=== PATIENT | female | born 1985 | race African-American/Black ===

== ENCOUNTER 2018-10-01 15:33 | Inpatient (IN) | payer MEDICAID ==
[~2018-10-01] VITALS: Ht 160 cm; Wt 136.9 kg
[~2018-10-01 15:33] MED LIST: CEPH250 PO; DULO30CA2 PO; DULO60CA44 PO; GABA-531 PO; GABA400C PO; QUET25TA PO; QUET300T2 PO; TRAZ-220 PO; Trazodone Hcl PO
[2018-10-01 16:10] LABS: BASOPHILS % (AUTO) 0.8 % (0.0-2.0); EOSINOPHILS % (AUTO) 2.3 % (1.0-6.0); HEMATOCRIT 36.3 % (36-46); HEMOGLOBIN 12.2 g/dL (12.0-16.0); LYMPHOCYTES # (AUTO) 1.8 K/uL (1.0-4.8); LYMPHOCYTES % (AUTO) 22.7 % (22.0-44.0); MEAN CORPUSCULAR HEMOGLOBIN 28.8 pg (26.0-34.0); MEAN CORPUSCULAR HGB CONC 33.7 G/dL (31.0-37.0); MEAN CORPUSCULAR VOLUME 86 fL (80-100); MONOCYTES # (AUTO) 0.5 K/uL (0.1-1.0); MONOCYTES % (AUTO) 6.4 % (2.0-9.0); NEUTROPHILS # (AUTO) 5.3 K/uL (1.8-7.7); NEUTROPHILS % (AUTO) 67.8 % (40.0-70.0); PLATELET COUNT (AUTO) 300 K/uL (150-450); RED BLOOD CELL COUNT(AUTO) 4.24 MIL/uL (4.00-5.20); RED CELL DISTRIBUTION WIDTH 16.1 % (11.5-14.5)
[2018-10-01 16:22] LABS: AMPHET/METH SCREEN,URINE NEGATIVE (NEGATIVE); BARBITURATE SCREEN, URINE NEGATIVE (NEGATIVE); BENZODIAZEPINES SCREEN,URINE NEGATIVE (NEGATIVE); CANNABINOID SCREEN,URINE NEGATIVE (NEGATIVE); COCAINE SCREEN,URINE NEGATIVE (NEGATIVE); METHADONE SCREEN, URINE NEGATIVE (NEGATIVE); OPIATE SCREEN,URINE NEGATIVE (NEGATIVE); PHENCYCLIDINE SCREEN,URINE NEGATIVE (NEGATIVE)
[2018-10-01 16:29] LABS: ANION GAP 14 mmol/L (8-16); CALCIUM, TOTAL 8.9 mg/dL (8.8-10.5); CARBON DIOXIDE 20 mmol/L (22-29); CHLORIDE 105 mmol/L (98-107); CREATININE 1.01 mg/dL (0.60-1.30); GLOMERULAR FILTR. RATE CALC > 60 mL/min (>60); GLUCOSE,RANDOM 100 mg/dL (70-110); POTASSIUM 3.8 mmol/L (3.5-5.1); SODIUM SERUM 139 mmol/L (136-145); UREA NITROGEN, BLOOD 11 mg/dL (7-18)
[2018-10-01 16:36] LABS: ALANINE AMINOTRANSFERASE 34 U/L (12-78); ALBUMIN 3.7 g/dL (3.4-5.0); ALKALINE PHOSPHATASE 88 U/L (46-116); ASPARTATE AMINOTRANSFERASE 21 U/L (15-37); BILIRUBIN,TOTAL 0.2 mg/dL (0.1-1.0); HCG,QUANTITATIVE < 1 mIU/mL (0-6); TOTAL PROTEIN, SERUM 8.2 g/dL (6.4-8.2)
[2018-10-01] MEDS ORDERED: LORazepam 2 MG TABLET PO ONE (17:45)
[2018-10-01] MEDS ORDERED: ACETAMINOPHEN 500 MG TABLET PO ONE (17:45)
[2018-10-01 18:08] LABS: APPEARANCE,URINE CLEAR (CLEAR); BILIRUBIN,URINE NEGATIVE (NEGATIVE); GLUCOSE, URINE (UA) NEGATIVE (NEGATIVE); KETONES,URINE NEGATIVE (NEGATIVE); LEUKOCYTE ESTERASE ,URINE NEGATIVE (NEGATIVE); NITRATE,URINE NEGATIVE (NEGATIVE); OCCULT BLOOD,URINE NEGATIVE (NEGATIVE); PH,URINE 6.5 (5.0-8.0); PROTEIN,URINE NEGATIVE (NEGATIVE); UROBILINOGEN,URINE 0.2 mg/dL (<=1.0)
[2018-10-01] MEDS ORDERED: KETOROLAC TROMETHAMINE 60 MG/2 ML VIAL IM ONE (18:30)
[2018-10-01 19:40] VITALS: BP 139/94
[2018-10-01] MEDS ORDERED: CloNIDine HCL 0.1 MG TABLET PO PRN (21:15)
[2018-10-01] MEDS ORDERED: ACETAMINOPHEN 325 MG TABLET PO PRN (21:15)
[2018-10-01] MEDS ORDERED: ALBUTEROL SULFATE HFA 90 MCG/PUFF 8 GM INHALER IH PRN (21:15)
[2018-10-01] MEDS ORDERED: PETROLATUM,WHITE 71 GM JELLY TP PRN (21:15)
[2018-10-01] MEDS ORDERED: GuaiFENesin/D-METHORPHAN [SUGAR-FREE] 200-20MG/10 ML SYRUP UDCUP PO PRN (21:15)
[2018-10-01] MEDS ORDERED: MAGNESIUM HYDROXIDE SUSPENSION 30 ML UDCUP PO PRN (21:15)
[2018-10-01] MEDS ORDERED: LOPERAMIDE HCL 2 MG CAPSULE PO PRN (21:15)
[2018-10-01] MEDS ORDERED: MAG HYDROX/AL HYDROX/SIMETH ES 30 ML SUSPENSION UDCUP PO PRN (21:15)
[2018-10-01] MEDS ORDERED: DOCUSATE SODIUM 100 MG CAPSULE PO PRN (21:15)
[2018-10-01] MEDS: LORazepam 2 MG TABLET PO PRN (21:23)
[2018-10-02 07:45] LABS: FREE T4 (FREE THYROXINE) 0.67 ng/dL (0.76-1.46); THYROID STIMULATING HORMONE 2.91 uIU/mL (0.36-3.74)
[2018-10-02 11:22] VITALS: BP 128/76
[2018-10-02] MEDS: LORazepam 2 MG TABLET PO PRN ×2 (13:17→17:30)
[2018-10-02] MEDS ORDERED: OxyCODONE HCL/ACETAMINOPHEN 5-325 MG TABLET PO ONE (14:00)
[2018-10-02] MEDS: NICOTINE 14 MG/24 HOUR PATCH TD PRN (14:26)
[2018-10-02] MEDS: OLANZapine 10 MG TABLET PO SCH (17:13)
[2018-10-02] MEDS: GABAPENTIN 300 MG CAPSULE PO SCH (17:13)
[2018-10-02 18:17] VITALS: BP 117/92
[2018-10-02] MEDS: QUEtiapine FUMARATE 300 MG TABLET PO SCH (21:08)
[2018-10-03 08:30] VITALS: BP 134/78
[2018-10-03] MEDS: GABAPENTIN 300 MG CAPSULE PO SCH ×2 (08:46→16:29)
[2018-10-03] MEDS: OLANZapine 10 MG TABLET PO SCH ×2 (08:46→16:29)
[2018-10-03] MEDS: LORazepam 2 MG TABLET PO PRN ×2 (08:46→14:26)
[2018-10-03] MEDS: NICOTINE 14 MG/24 HOUR PATCH TD PRN (08:49)
[2018-10-03] MEDS: ONDANSETRON HCL 4 MG TABLET PO PRN (12:24)
[2018-10-03] MEDS: HALOPERIDOL 5 MG TABLET PO PRN (14:26)
[2018-10-03] MEDS: DiphenhydrAMINE HCL 25 MG CAPSULE PO PRN (14:26)
[2018-10-03] MEDS ORDERED: OxyCODONE HCL/ACETAMINOPHEN 5-325 MG TABLET PO ONE (14:30)
[2018-10-03 16:49] VITALS: BP 145/91
[2018-10-03] MEDS: NYSTATIN 15 GM POWDER BOTTLE TP SCH (17:15)
[2018-10-03] MEDS: QUEtiapine FUMARATE 300 MG TABLET PO SCH (21:18)
[2018-10-04 09:25] VITALS: BP 117/67
[2018-10-04] MEDS: LORazepam 2 MG TABLET PO PRN ×2 (11:17→17:15)
[2018-10-04] MEDS: OLANZapine 10 MG TABLET PO SCH ×2 (11:17→17:14)
[2018-10-04] MEDS: GABAPENTIN 300 MG CAPSULE PO SCH ×2 (11:17→17:14)
[2018-10-04] MEDS: IBUPROFEN 400 MG TABLET PO PRN (11:18)
[2018-10-04] MEDS: DiphenhydrAMINE HCL 25 MG CAPSULE PO PRN (11:18)
[2018-10-04] MEDS: HALOPERIDOL 5 MG TABLET PO PRN (11:19)
[2018-10-04] MEDS: NYSTATIN 15 GM POWDER BOTTLE TP SCH ×2 (11:24→17:14)
[2018-10-04 17:45] VITALS: BP 149/95
[2018-10-04] MEDS ORDERED: OxyCODONE HCL/ACETAMINOPHEN 5-325 MG TABLET PO ONE (17:45)
[2018-10-04] MEDS: QUEtiapine FUMARATE 300 MG TABLET PO SCH (20:33)
[2018-10-05 09:47] VITALS: BP 125/83
[2018-10-05] MEDS: LORazepam 2 MG TABLET PO PRN ×3 (09:47→20:19)
[2018-10-05] MEDS: DiphenhydrAMINE HCL 25 MG CAPSULE PO PRN ×2 (09:47→20:20)
[2018-10-05] MEDS: HALOPERIDOL 5 MG TABLET PO PRN ×2 (09:47→20:19)
[2018-10-05] MEDS: GABAPENTIN 300 MG CAPSULE PO SCH ×2 (09:47→16:13)
[2018-10-05] MEDS: OLANZapine 10 MG TABLET PO SCH ×2 (09:47→16:13)
[2018-10-05] MEDS: NYSTATIN 15 GM POWDER BOTTLE TP SCH ×2 (09:49→16:13)
[2018-10-05 16:13] VITALS: BP 144/93
[2018-10-05] MEDS: IBUPROFEN 400 MG TABLET PO PRN (16:13)
[2018-10-05 18:23] LABS: APPEARANCE,URINE CLOUDY (CLEAR); BILIRUBIN,URINE NEGATIVE (NEGATIVE); GLUCOSE, URINE (UA) NEGATIVE (NEGATIVE); KETONES,URINE NEGATIVE (NEGATIVE); LEUKOCYTE ESTERASE ,URINE NEGATIVE (NEGATIVE); NITRATE,URINE NEGATIVE (NEGATIVE); OCCULT BLOOD,URINE NEGATIVE (NEGATIVE); PH,URINE 5.5 (5.0-8.0); PROTEIN,URINE NEGATIVE (NEGATIVE); UROBILINOGEN,URINE 0.2 mg/dL (<=1.0)
[2018-10-05 18:32] LABS: BACTERIA,URINE Rare /HPF (None Seen); RBC,URINE None Seen /HPF (0-2); SQUAMOUS EPITHELIAL CELL,UR Few /LPF (None Seen); WBC,URINE None Seen /HPF (0-5)
[2018-10-05] MEDS: QUEtiapine FUMARATE 300 MG TABLET PO SCH (20:11)
[2018-10-05] MEDS: ZOLPIDEM TARTRATE 10 MG TABLET PO PRN (21:14)
[2018-10-06 05:30] VITALS: BP 122/98
[2018-10-06] MEDS: LORazepam 2 MG TABLET PO PRN ×3 (05:43→16:14)
[2018-10-06] MEDS: TraMADol HCL 50 MG TABLET PO PRN ×2 (05:44→13:45)
[2018-10-06] MEDS: DiphenhydrAMINE HCL 25 MG CAPSULE PO PRN ×2 (05:44→16:40)
[2018-10-06] MEDS: NYSTATIN 15 GM POWDER BOTTLE TP SCH ×2 (08:12→16:12)
[2018-10-06] MEDS: OLANZapine 10 MG TABLET PO SCH ×2 (08:12→16:14)
[2018-10-06] MEDS: GABAPENTIN 300 MG CAPSULE PO SCH ×2 (08:14→16:14)
[2018-10-06 11:43] VITALS: BP 171/97
[2018-10-06 13:30] VITALS: BP 141/89
[2018-10-06] MEDS: HALOPERIDOL 5 MG TABLET PO PRN (16:40)
[2018-10-06 19:10] VITALS: BP 146/93
[2018-10-06] MEDS: OxyCODONE HCL/ACETAMINOPHEN 5-325 MG TABLET PO PRN (19:10)
[2018-10-06] MEDS: QUEtiapine FUMARATE 300 MG TABLET PO SCH (20:09)
[2018-10-06] MEDS: ZOLPIDEM TARTRATE 10 MG TABLET PO PRN (21:20)
[2018-10-07] MEDS: LORazepam 2 MG TABLET PO PRN ×3 (01:40→17:46)
[2018-10-07 01:44] VITALS: BP 105/86
[2018-10-07] MEDS: OLANZapine 10 MG TABLET PO SCH ×2 (09:23→17:20)
[2018-10-07] MEDS: GABAPENTIN 300 MG CAPSULE PO SCH ×2 (09:23→17:20)
[2018-10-07] MEDS: NYSTATIN 15 GM POWDER BOTTLE TP SCH ×2 (09:23→17:20)
[2018-10-07 11:05] VITALS: BP 135/79
[2018-10-07] MEDS: OxyCODONE HCL/ACETAMINOPHEN 5-325 MG TABLET PO PRN (11:05)
[2018-10-07] MEDS: HALOPERIDOL 5 MG TABLET PO PRN (11:05)
[2018-10-07] MEDS: DiphenhydrAMINE HCL 25 MG CAPSULE PO PRN (11:05)
[2018-10-07 17:19] VITALS: BP 133/80
[2018-10-07] MEDS: QUEtiapine FUMARATE 300 MG TABLET PO SCH (20:48)
[2018-10-08] MEDS: NYSTATIN 15 GM POWDER BOTTLE TP SCH ×2 (09:00→16:04)
[2018-10-08] MEDS: OLANZapine 10 MG TABLET PO SCH ×2 (09:30→16:00)
[2018-10-08] MEDS: GABAPENTIN 300 MG CAPSULE PO SCH ×2 (09:30→16:00)
[2018-10-08] MEDS: LORazepam 2 MG TABLET PO PRN ×2 (09:36→15:58)
[2018-10-08 09:37] VITALS: BP 134/98
[2018-10-08] MEDS: OxyCODONE HCL/ACETAMINOPHEN 5-325 MG TABLET PO PRN (09:37)
[2018-10-08 11:14] VITALS: BP 117/64
[2018-10-08] MEDS ORDERED: PALIPERIDONE PALMITATE 234 MG/1.5 ML SYRINGE IM ONE (11:15)
[2018-10-08 15:59] VITALS: BP 118/91
[2018-10-08] MEDS: TraMADol HCL 50 MG TABLET PO PRN (15:59)
[2018-10-08 16:59] VITALS: BP 139/96
[2018-10-08] MEDS: HALOPERIDOL 5 MG TABLET PO PRN (18:18)
[2018-10-08] MEDS: DiphenhydrAMINE HCL 25 MG CAPSULE PO PRN (18:19)
[2018-10-08] MEDS: QUEtiapine FUMARATE 300 MG TABLET PO SCH (20:42)
[2018-10-09] MEDS: LORazepam 2 MG TABLET PO PRN ×3 (04:24→19:07)
[2018-10-09 04:25] VITALS: BP 128/93
[2018-10-09] MEDS: TraMADol HCL 50 MG TABLET PO PRN (04:25)
[2018-10-09] MEDS: NYSTATIN 15 GM POWDER BOTTLE TP SCH ×2 (09:00→16:37)
[2018-10-09] MEDS: OLANZapine 10 MG TABLET PO SCH ×2 (09:52→16:31)
[2018-10-09] MEDS: GABAPENTIN 300 MG CAPSULE PO SCH ×2 (09:52→16:32)
[2018-10-09 10:47] VITALS: BP 136/79
[2018-10-09 10:51] VITALS: BP 136/79
[2018-10-09 12:20] VITALS: BP 131/78
[2018-10-09] MEDS: OxyCODONE HCL/ACETAMINOPHEN 5-325 MG TABLET PO PRN (12:20)
[2018-10-09 17:00] VITALS: BP 114/58
[2018-10-09] MEDS: QUEtiapine FUMARATE 300 MG TABLET PO SCH (20:16)
[2018-10-09] MEDS: ZOLPIDEM TARTRATE 10 MG TABLET PO PRN (21:26)
[2018-10-10] MEDS: OxyCODONE HCL/ACETAMINOPHEN 5-325 MG TABLET PO PRN (04:24)
[2018-10-10] MEDS: LORazepam 2 MG TABLET PO PRN ×3 (04:24→17:45)
[2018-10-10 08:11] VITALS: BP 133/83
[2018-10-10] MEDS: NYSTATIN 15 GM POWDER BOTTLE TP SCH (09:00)
[2018-10-10] MEDS: OLANZapine 10 MG TABLET PO SCH ×2 (09:13→16:09)
[2018-10-10] MEDS: GABAPENTIN 300 MG CAPSULE PO SCH ×2 (09:13→16:09)
[2018-10-10] MEDS: TraMADol HCL 50 MG TABLET PO PRN (14:43)
[2018-10-10] MEDS: ChlorproMAZINE HCL 50 MG TABLET PO PRN (16:16)
[2018-10-10 17:46] VITALS: BP 143/92
[2018-10-10] MEDS: IBUPROFEN 400 MG TABLET PO PRN (17:46)
[2018-10-10] MEDS: QUEtiapine FUMARATE 300 MG TABLET PO SCH (20:04)
[2018-10-11] MEDS: IBUPROFEN 400 MG TABLET PO PRN (01:36)
[2018-10-11] MEDS: ZOLPIDEM TARTRATE 10 MG TABLET PO PRN (01:36)
[2018-10-11 01:37] VITALS: BP 120/79
[2018-10-11 06:58] VITALS: BP 111/77
[2018-10-11] MEDS: OxyCODONE HCL/ACETAMINOPHEN 5-325 MG TABLET PO PRN (07:00)
[2018-10-11] MEDS: OLANZapine 10 MG TABLET PO SCH ×2 (10:10→16:41)
[2018-10-11] MEDS: GABAPENTIN 300 MG CAPSULE PO SCH ×2 (10:10→16:41)
[2018-10-11] MEDS: LORazepam 2 MG TABLET PO PRN ×2 (11:14→17:47)
[2018-10-11] MEDS: ONDANSETRON HCL 4 MG TABLET PO PRN (18:14)
[2018-10-11] MEDS ORDERED: ONDANSETRON HCL 4 MG/2 ML VIAL IM ONE (19:00)
[2018-10-11] MEDS: QUEtiapine FUMARATE 300 MG TABLET PO SCH (20:53)
[2018-10-11 21:22] VITALS: BP 121/75
[2018-10-12] MEDS ORDERED: PALIPERIDONE PALMITATE 156 MG/ML SYRINGE IM ONE (09:00)
[2018-10-12 09:13] VITALS: BP 135/77
[2018-10-12] MEDS: OLANZapine 10 MG TABLET PO SCH ×2 (09:47→17:09)
[2018-10-12] MEDS: GABAPENTIN 300 MG CAPSULE PO SCH ×2 (09:47→17:09)
[2018-10-12 10:14] VITALS: BP 148/74
[2018-10-12] MEDS: LORazepam 2 MG TABLET PO PRN ×2 (10:14→17:11)
[2018-10-12] MEDS: OxyCODONE HCL/ACETAMINOPHEN 5-325 MG TABLET PO PRN (10:14)
[2018-10-12 17:11] VITALS: BP 130/72
[2018-10-12] MEDS: TraMADol HCL 50 MG TABLET PO PRN (17:11)
[2018-10-12 18:11] VITALS: BP 124/74
[2018-10-12] MEDS: TiZANidine HCL 4 MG TABLET PO PRN (20:10)
[2018-10-12] MEDS: QUEtiapine FUMARATE 300 MG TABLET PO SCH (20:11)
[2018-10-12 21:03] VITALS: BP 115/60
[2018-10-13 00:35] VITALS: BP 129/107
[2018-10-13] MEDS: ZOLPIDEM TARTRATE 10 MG TABLET PO PRN ×2 (00:37→20:16)
[2018-10-13] MEDS: TraMADol HCL 50 MG TABLET PO PRN (00:37)
[2018-10-13] MEDS: LORazepam 2 MG TABLET PO PRN ×3 (02:02→16:19)
[2018-10-13 02:03] VITALS: BP 115/68
[2018-10-13 04:25] VITALS: BP 159/98
[2018-10-13] MEDS: IBUPROFEN 400 MG TABLET PO PRN (04:30)
[2018-10-13] MEDS: GABAPENTIN 300 MG CAPSULE PO SCH ×2 (07:59→16:17)
[2018-10-13] MEDS: OLANZapine 10 MG TABLET PO SCH ×2 (07:59→16:17)
[2018-10-13] MEDS: OxyCODONE HCL/ACETAMINOPHEN 5-325 MG TABLET PO PRN (08:00)
[2018-10-13] MEDS: TiZANidine HCL 4 MG TABLET PO PRN ×2 (08:01→20:18)
[2018-10-13 08:05] VITALS: BP 135/89
[2018-10-13] MEDS: ChlorproMAZINE HCL 50 MG TABLET PO PRN (14:13)
[2018-10-13 17:00] VITALS: BP 140/73
[2018-10-13] MEDS: QUEtiapine FUMARATE 300 MG TABLET PO SCH (20:15)
[2018-10-14] MEDS: LORazepam 2 MG TABLET PO PRN ×2 (01:03→14:41)
[2018-10-14 01:05] VITALS: BP 114/62
[2018-10-14] MEDS: DiphenhydrAMINE HCL 25 MG CAPSULE PO PRN (01:06)
[2018-10-14] MEDS: IBUPROFEN 400 MG TABLET PO PRN (01:06)
[2018-10-14] MEDS: TraMADol HCL 50 MG TABLET PO PRN ×2 (01:06→14:41)
[2018-10-14 07:52] VITALS: BP 139/86
[2018-10-14] MEDS: OxyCODONE HCL/ACETAMINOPHEN 5-325 MG TABLET PO PRN (07:52)
[2018-10-14] MEDS: GABAPENTIN 300 MG CAPSULE PO SCH ×2 (07:52→17:14)
[2018-10-14] MEDS: OLANZapine 10 MG TABLET PO SCH ×2 (07:52→17:14)
[2018-10-14] MEDS: QUEtiapine FUMARATE 300 MG TABLET PO SCH (21:20)
[2018-10-14 21:50] VITALS: BP 143/89
[2018-10-15 07:53] VITALS: BP 151/92
[2018-10-15] MEDS: GABAPENTIN 300 MG CAPSULE PO SCH (07:53)
[2018-10-15] MEDS: OLANZapine 10 MG TABLET PO SCH (07:53)
[2018-10-15] MEDS: OxyCODONE HCL/ACETAMINOPHEN 5-325 MG TABLET PO PRN (07:53)
[2018-10-15] MEDS: LORazepam 2 MG TABLET PO PRN (09:11)
[2018-10-15] MEDS ORDERED: QUET300T2 PO (10:36)
[2018-10-15] MEDS ORDERED: GABA-531 PO (10:37)
[2018-10-15] MEDS ORDERED: OLAN10TA3 PO (10:39)
[2018-10-15] MEDS: ChlorproMAZINE HCL 50 MG TABLET PO PRN (10:40)
== END 2018-10-15 14:00 | disposition home or self-care (01) | DRG 750 ==
LOC: EMS 15:35 → 3EI 19:06
PROVIDERS: ADMIT Psychiatry & Neurology Psychiatry; ATTEND Psychiatry & Neurology Psychiatry
DX: F25.0 Schizoaffective disorder, bipolar type (principal); R45.851 Suicidal ideations; F41.9 Anxiety disorder, unspecified; G89.29 Other chronic pain; J45.909 Unspecified asthma, uncomplicated; M54.9 Dorsalgia, unspecified; F15.90 Other stimulant use, unspecified, uncomplicated; Z76.5 Malingerer [conscious simulation]
CPT/HCPCS: 70486; 76700; 76856; 83036; 84439; 84443; G0480; J1885; J2405; Q0162

== ENCOUNTER 2020-02-26 11:48 | Inpatient (IN) | payer MEDICAID ==
[~2020-02-26] VITALS: Ht 160 cm; Wt 134.3 kg
[~2020-02-26 11:48] MED LIST changes: -CEPH250 PO; -DULO30CA2 PO; -DULO60CA44 PO; +GABA-1181 PO; -GABA-531 PO; -GABA400C PO; +OLAN10TA3 PO; -QUET25TA PO; -TRAZ-220 PO; -Trazodone Hcl PO
[2020-02-26] MEDS ORDERED: LORazepam 1 MG TABLET PO PRN (21:30)
[2020-02-26 22:40] VITALS: BP 137/89
[2020-02-26] MEDS: TraMADol HCL 50 MG TABLET PO PRN (23:03)
[2020-02-26] MEDS: LORazepam 1 MG TABLET PO PRN (23:04)
[2020-02-26] MEDS ORDERED: -PHARMACY VACCINE NOTE- MISC ONE (23:15)
[2020-02-27] MEDS ORDERED: LORazepam 1 MG TABLET PO SCH
[2020-02-27 05:37] VITALS: BP 130/82
[2020-02-27] MEDS: OXcarbazepine 300 MG TABLET PO SCH ×2 (08:23→16:27)
[2020-02-27] MEDS: FLUoxetine HCL 20 MG CAPSULE PO SCH (08:23)
[2020-02-27] MEDS: BusPIRone HCL 15 MG TABLET PO SCH (08:23)
[2020-02-27 08:24] LABS: BASOPHILS % (AUTO) 0.6 % (0.0-2.0); EOSINOPHILS % (AUTO) 3.8 % (1.0-6.0); HEMOGLOBIN 11.9 g/dL (12.0-16.0); LYMPHOCYTES # (AUTO) 2.5 K/uL (1.0-4.8); LYMPHOCYTES % (AUTO) 29.5 % (22.0-44.0); MEAN CORPUSCULAR HEMOGLOBIN 30.2 pg (26.0-34.0); MEAN CORPUSCULAR HGB CONC 34.1 G/dL (31.0-37.0); MEAN CORPUSCULAR VOLUME 89 fL (80-100); MONOCYTES # (AUTO) 0.5 K/uL (0.1-1.0); MONOCYTES % (AUTO) 6.2 % (2.0-9.0); NEUTROPHILS # (AUTO) 5.1 K/uL (1.8-7.7); NEUTROPHILS % (AUTO) 59.9 % (40.0-70.0); PLATELET COUNT (AUTO) 282 K/uL (150-450); RED BLOOD CELL COUNT(AUTO) 3.95 MIL/uL (4.00-5.20); RED CELL DISTRIBUTION WIDTH 14.6 % (11.5-14.5)
[2020-02-27 08:44] LABS: HEMOGLOBIN A1C 5.5 % (3.8-5.6)
[2020-02-27 08:47] VITALS: BP 112/88
[2020-02-27] MEDS ORDERED: BusPIRone HCL 15 MG TABLET PO SCH (09:00)
[2020-02-27 09:02] LABS: ALANINE AMINOTRANSFERASE 27 U/L (12-78); ALKALINE PHOSPHATASE 69 U/L (46-116); ANION GAP 9 mmol/L (8-16); ASPARTATE AMINOTRANSFERASE 18 U/L (15-37); BILIRUBIN,TOTAL 0.3 mg/dL (0.1-1.0); CALCIUM, TOTAL 8.5 mg/dL (8.8-10.5); CARBON DIOXIDE 24 mmol/L (22-29); CHLORIDE 105 mmol/L (98-107); CHOL/HDL RATIO 3.1 (3.9-5.7); CHOLESTEROL 138 mg/dL (131-200); CREATININE 0.85 mg/dL (0.60-1.30); FREE T4 (FREE THYROXINE) 0.88 ng/dL (0.76-1.46); GLOMERULAR FILTR. RATE CALC > 60 mL/min (>60); GLUCOSE,RANDOM 93 mg/dL (70-110); HCG,QUANTITATIVE < 1 mIU/mL (0-6); HDL CHOLESTEROL 44 mg/dL (40-60); LDL CHOL (CALC.) 66 mg/dL (0-130); POTASSIUM 3.6 mmol/L (3.5-5.1); SODIUM SERUM 138 mmol/L (136-145); THYROID STIMULATING HORMONE 3.64 uIU/mL (0.36-3.74); TOTAL PROTEIN, SERUM 6.7 g/dL (6.4-8.2); TRIGLYCERIDES 141 mg/dL (15-150); UREA NITROGEN, BLOOD 15 mg/dL (7-18)
[2020-02-27] MEDS: TraMADol HCL 50 MG TABLET PO PRN (09:12)
[2020-02-27] MEDS: LORazepam 1 MG TABLET PO PRN ×2 (09:37→17:18)
[2020-02-27] MEDS ORDERED: MAG HYDROX/AL HYDROX/SIMETH ES 30 ML SUSPENSION UDCUP PO PRN (10:45)
[2020-02-27] MEDS ORDERED: GuaiFENesin/D-METHORPHAN [SUGAR-FREE] 200-20MG/10 ML SYRUP UDCUP PO PRN (10:45)
[2020-02-27] MEDS ORDERED: LOPERAMIDE HCL 2 MG CAPSULE PO PRN (10:45)
[2020-02-27] MEDS ORDERED: NICOTINE 14 MG/24 HOUR PATCH TD PRN (10:45)
[2020-02-27] MEDS ORDERED: ACETAMINOPHEN 325 MG TABLET PO PRN (10:45)
[2020-02-27] MEDS ORDERED: DOCUSATE SODIUM 100 MG CAPSULE PO PRN (10:45)
[2020-02-27] MEDS ORDERED: PETROLATUM,WHITE 28 GM JELLY TP PRN (10:45)
[2020-02-27] MEDS ORDERED: ALBUTEROL SULFATE HFA 90 MCG/PUFF 8 GM INHALER IH PRN (10:45)
[2020-02-27] MEDS ORDERED: CloNIDine HCL 0.1 MG TABLET PO PRN (10:45)
[2020-02-27] MEDS ORDERED: MAGNESIUM HYDROXIDE SUSPENSION 30 ML UDCUP PO PRN (10:45)
[2020-02-27] MEDS ORDERED: ONDANSETRON HCL 4 MG TABLET PO PRN (10:45)
[2020-02-27] MEDS: IBUPROFEN 400 MG TABLET PO PRN (11:20)
[2020-02-27] MEDS: OxyCODONE HCL/ACETAMINOPHEN 5-325 MG TABLET PO PRN (16:28)
[2020-02-27 16:33] VITALS: BP 134/83
[2020-02-27] MEDS: PRAZOSIN HCL 2 MG CAPSULE PO SCH (20:31)
[2020-02-27] MEDS: OLANZapine 10 MG TABLET PO SCH (20:31)
[2020-02-27] MEDS: QUEtiapine FUMARATE 200 MG TABLET PO SCH (20:31)
[2020-02-27] MEDS: TraZODone HCL 100 MG TABLET PO SCH (20:58)
[2020-02-27] MEDS ORDERED: OLANZapine 10 MG TABLET PO SCH (21:00)
[2020-02-27 23:58] LABS: GLUCOMETER DEV NAME(LOC) BV3S.; GLUCOSE,POINT OF CARE 88 MG/DL (70-110)
[2020-02-28 05:50] VITALS: BP 128/86
[2020-02-28] MEDS: LORazepam 1 MG TABLET PO PRN ×2 (05:53→11:43)
[2020-02-28] MEDS: OxyCODONE HCL/ACETAMINOPHEN 5-325 MG TABLET PO PRN ×2 (05:54→18:34)
[2020-02-28 06:01] VITALS: BP 130/82
[2020-02-28] MEDS: OLANZapine 10 MG TABLET PO SCH ×2 (09:17→20:07)
[2020-02-28] MEDS: BusPIRone HCL 15 MG TABLET PO SCH (09:17)
[2020-02-28] MEDS: FLUoxetine HCL 20 MG CAPSULE PO SCH (09:18)
[2020-02-28] MEDS: OXcarbazepine 300 MG TABLET PO SCH ×2 (09:18→18:34)
[2020-02-28] MEDS: IBUPROFEN 400 MG TABLET PO PRN (12:38)
[2020-02-28 16:00] VITALS: BP 136/93
[2020-02-28] MEDS ORDERED: HALOPERIDOL LACTATE 5 MG/ML VIAL IM ONE (16:00)
[2020-02-28] MEDS ORDERED: DiphenhydrAMINE HCL 50 MG/ML VIAL IM ONE (16:00)
[2020-02-28] MEDS ORDERED: LORazepam 2 MG/ML VIAL IM ONE (16:00)
[2020-02-28] MEDS ORDERED: LORazepam 1 MG TABLET PO ONE (16:00)
[2020-02-28] MEDS: TraZODone HCL 100 MG TABLET PO SCH (20:07)
[2020-02-28] MEDS: QUEtiapine FUMARATE 200 MG TABLET PO SCH (20:07)
[2020-02-28] MEDS: PRAZOSIN HCL 2 MG CAPSULE PO SCH (20:07)
[2020-02-29 05:49] VITALS: BP 119/74
[2020-02-29 08:11] VITALS: BP 126/75
[2020-02-29] MEDS: FLUoxetine HCL 20 MG CAPSULE PO SCH (08:50)
[2020-02-29] MEDS: OXcarbazepine 300 MG TABLET PO SCH (08:50)
[2020-02-29] MEDS: LORazepam 1 MG TABLET PO PRN (08:51)
[2020-02-29] MEDS: BusPIRone HCL 15 MG TABLET PO SCH (08:51)
[2020-02-29] MEDS: OLANZapine 10 MG TABLET PO SCH (08:51)
[2020-02-29 09:03] VITALS: BP 120/74
[2020-02-29] MEDS: OxyCODONE HCL/ACETAMINOPHEN 5-325 MG TABLET PO PRN (09:03)
[2020-02-29] MEDS: TraMADol HCL 50 MG TABLET PO PRN (13:54)
[2020-02-29] MEDS ORDERED: BUSP15 PO (14:33)
[2020-02-29] MEDS ORDERED: PRAZ2 PO (14:33)
[2020-02-29] MEDS ORDERED: OXCA300T29 PO (14:33)
[2020-02-29] MEDS ORDERED: QUET200T PO (14:33)
[2020-02-29] MEDS ORDERED: TRAZ-257 PO (14:33)
[2020-02-29] MEDS ORDERED: OLAN7.5T2 PO (14:33)
[2020-02-29] MEDS ORDERED: FLUO-191 PO (14:33)
[2020-02-29] MEDS ORDERED: BusPIRone HCL 15 MG TABLET PO SCH (17:00)
[2020-02-29] MEDS ORDERED: OLANZapine 7.5 MG TABLET PO SCH (21:00)
== END 2020-02-29 15:50 | disposition home or self-care (01) | DRG 750 ==
LOC: B3A 22:07
PROVIDERS: ADMIT Psychiatry & Neurology Psychiatry; ATTEND Psychiatry & Neurology Psychiatry
DX: F25.9 Schizoaffective disorder, unspecified (principal); F11.20 Opioid dependence, uncomplicated; Z68.43 Body mass index [BMI] 50.0-59.9, adult; E66.9 Obesity, unspecified; F43.10 Post-traumatic stress disorder, unspecified; X58.XXXA Exposure to other specified factors, initial encounter; J45.909 Unspecified asthma, uncomplicated; G43.909 Migraine, unspecified, not intractable, without status migrainosus; Z81.8 Family history of other mental and behavioral disorders; F13.10 Sedative, hypnotic or anxiolytic abuse, uncomplicated; M54.9 Dorsalgia, unspecified; D64.9 Anemia, unspecified; F19.10 Other psychoactive substance abuse, uncomplicated; F41.9 Anxiety disorder, unspecified; F32.9 Major depressive disorder, single episode, unspecified
CPT/HCPCS: 83036; 84436; 84439; 84443; 86592; 87081; J1200; J1630; J2060

== ENCOUNTER 2021-03-29 19:16 | Inpatient (IN) | payer MEDICAID, OTHER ==
[~2021-03-29] VITALS: Ht 160 cm; Wt 145.1 kg
[~2021-03-29 19:16] MED LIST changes: +BUSP15 PO; +FLUO-191 PO; -GABA-1181 PO; -OLAN10TA3 PO; +OLAN7.5T22 PO; +OXCA300T57 PO; +PRAZ2 PO; +QUET200T PO; -QUET300T2 PO; +TRAZ-257 PO
[2021-03-29 20:16] LABS: AMPHET/METH SCREEN,URINE NEGATIVE (NEGATIVE); BARBITURATE SCREEN, URINE NEGATIVE (NEGATIVE); BENZODIAZEPINES SCREEN,URINE POSITIVE (NEGATIVE); CANNABINOID SCREEN,URINE NEGATIVE (NEGATIVE); COCAINE SCREEN,URINE NEGATIVE (NEGATIVE); METHADONE SCREEN, URINE NEGATIVE (NEGATIVE); OPIATE SCREEN,URINE NEGATIVE (NEGATIVE)
[2021-03-29 20:25] LABS: PHENCYCLIDINE SCREEN,URINE NEGATIVE (NEGATIVE)
[2021-03-29 20:32] LABS: EOSINOPHILS % (AUTO) 6.1 % (1.0-6.0); HEMATOCRIT 33.9 % (36-46); HEMOGLOBIN 11.2 g/dL (12.0-16.0); LYMPHOCYTES # (AUTO) 2.6 K/uL (1.0-4.8); LYMPHOCYTES % (AUTO) 27.1 % (22.0-44.0); MEAN CORPUSCULAR HEMOGLOBIN 30.2 pg (26.0-34.0); MEAN CORPUSCULAR HGB CONC 32.9 G/dL (31.0-37.0); MEAN CORPUSCULAR VOLUME 92 fL (80-100); MONOCYTES # (AUTO) 0.6 K/uL (0.1-1.0); MONOCYTES % (AUTO) 6.6 % (2.0-9.0); NEUTROPHILS # (AUTO) 5.6 K/uL (1.8-7.7); NEUTROPHILS % (AUTO) 59.2 % (40.0-70.0); RED BLOOD CELL COUNT(AUTO) 3.69 MIL/uL (4.00-5.20); RED CELL DISTRIBUTION WIDTH 14.3 % (11.5-14.5)
[2021-03-29 20:45] LABS: ANION GAP 13 mmol/L (8-16); CALCIUM, TOTAL 8.9 mg/dL (8.8-10.5); CARBON DIOXIDE 23 mmol/L (22-29); CHLORIDE 107 mmol/L (98-107); CREATININE 0.85 mg/dL (0.60-1.30); GLOMERULAR FILTR. RATE CALC > 60 mL/min (>60); GLUCOSE,RANDOM 114 mg/dL (70-110); POTASSIUM 4.3 mmol/L (3.5-5.1); SODIUM SERUM 143 mmol/L (136-145); UREA NITROGEN, BLOOD 19 mg/dL (7-18)
[2021-03-29 20:53] LABS: ALANINE AMINOTRANSFERASE 92 U/L (12-78); ALBUMIN 3.3 g/dL (3.4-5.0); ALKALINE PHOSPHATASE 62 U/L (46-116); ASPARTATE AMINOTRANSFERASE 62 U/L (15-37); TOTAL PROTEIN, SERUM 6.6 g/dL (6.4-8.2)
[2021-03-29 21:10] LABS: BILIRUBIN,TOTAL 0.1 mg/dL (0.1-1.0)
[2021-03-29 22:35] LABS: COVID AG,FIA SOURCE NASOPHARYNGEAL
[2021-03-29] MEDS ORDERED: DIAZ5TAB5 PO (22:41)
[2021-03-29] MEDS ORDERED: BENZ0.5T44 PO (22:41)
[2021-03-29] MEDS ORDERED: GABA-1181 PO (22:41)
[2021-03-29] MEDS ORDERED: FURO20 PO (22:41)
[2021-03-29] MEDS ORDERED: ALBU8HFA IH (22:41)
[2021-03-29] MEDS ORDERED: ONDA-104 PO (22:41)
[2021-03-29] MEDS ORDERED: DIVA-111 PO ×2 (22:44)
[2021-03-29] MEDS ORDERED: TIZA2CAP PO (22:44)
[2021-03-29] MEDS ORDERED: ZOLPIDEM TARTRATE 10 MG TABLET PO PRN (22:45)
[2021-03-29 23:58] LABS: PLATELET COUNT (AUTO) 218 K/uL (150-450)
[2021-03-30 02:51] VITALS: BP 140/90
[2021-03-30] MEDS ORDERED: PNEUMOCOCCAL VACCINE POLYVALENT 0.5 ML VIAL [PPSV23] IM. ONE (03:00)
[2021-03-30] MEDS: LORazepam 2 MG TABLET PO PRN ×4 (04:38→22:37)
[2021-03-30] MEDS ORDERED: PETROLATUM,WHITE 28 GM JELLY TP PRN (06:00)
[2021-03-30] MEDS ORDERED: BENZOCAINE/MENTHOL LOZENGE PO PRN (06:00)
[2021-03-30] MEDS ORDERED: ONDANSETRON HCL 4 MG TABLET PO PRN (06:00)
[2021-03-30] MEDS ORDERED: LOPERAMIDE HCL 2 MG CAPSULE PO PRN (06:00)
[2021-03-30] MEDS ORDERED: MAGNESIUM HYDROXIDE SUSPENSION 30 ML UDCUP PO PRN (06:00)
[2021-03-30] MEDS ORDERED: OMEPRAZOLE 20 MG CAPSULE PO PRN (06:00)
[2021-03-30] MEDS ORDERED: MAG HYDROX/AL HYDROX/SIMETH ES 30 ML SUSPENSION UDCUP PO PRN (06:00)
[2021-03-30] MEDS ORDERED: BACITRACIN 28 GM OINTMENT TP PRN (06:00)
[2021-03-30] MEDS ORDERED: ALBUTEROL SULFATE HFA 90 MCG/PUFF 8 GM INHALER IH PRN (06:00)
[2021-03-30] MEDS ORDERED: DOCUSATE SODIUM 100 MG CAPSULE PO PRN (06:00)
[2021-03-30] MEDS ORDERED: CloNIDine HCL 0.1 MG TABLET PO PRN (06:00)
[2021-03-30] MEDS: HALOPERIDOL 5 MG TABLET PO PRN (06:29)
[2021-03-30] MEDS: ACETAMINOPHEN 325 MG TABLET PO PRN ×3 (06:31→18:40)
[2021-03-30] MEDS: FUROSEMIDE 20 MG TABLET PO SCH (08:16)
[2021-03-30] MEDS: CEPHALEXIN MONOHYDRATE 500 MG CAPSULE PO SCH ×4 (08:16→20:24)
[2021-03-30 08:31] VITALS: BP 120/74
[2021-03-30] MEDS: DIVALPROEX SODIUM 500 MG DR TABLET PO SCH ×2 (10:02→16:39)
[2021-03-30] MEDS ORDERED: DiphenhydrAMINE HCL 50 MG/ML VIAL ONE (10:12)
[2021-03-30] MEDS ORDERED: LORazepam 2 MG/ML VIAL ONE (10:12)
[2021-03-30] MEDS ORDERED: HALOPERIDOL LACTATE 5 MG/ML VIAL ONE (10:13)
[2021-03-30] MEDS ORDERED: LORazepam 2 MG/ML VIAL IM ONE ×2 (10:15→17:30)
[2021-03-30] MEDS ORDERED: DiphenhydrAMINE HCL 50 MG/ML VIAL IM ONE ×2 (10:15→17:30)
[2021-03-30] MEDS ORDERED: HALOPERIDOL LACTATE 5 MG/ML VIAL IM ONE ×2 (10:15→17:30)
[2021-03-30] MEDS: TiZANidine HCL 4 MG TABLET PO PRN ×2 (13:27→19:53)
[2021-03-30 16:14] VITALS: BP 111/61
[2021-03-30] MEDS ORDERED: OLANZapine 7.5 MG TABLET PO SCH (21:00)
[2021-03-31 01:36] VITALS: BP 138/93
[2021-03-31] MEDS: ACETAMINOPHEN 325 MG TABLET PO PRN ×2 (01:55→08:52)
[2021-03-31] MEDS: CEPHALEXIN MONOHYDRATE 500 MG CAPSULE PO SCH ×2 (08:00→12:27)
[2021-03-31] MEDS: LORazepam 2 MG TABLET PO PRN ×2 (08:00→12:34)
[2021-03-31] MEDS: TiZANidine HCL 4 MG TABLET PO PRN (08:01)
[2021-03-31] MEDS: DIVALPROEX SODIUM 500 MG DR TABLET PO SCH (08:01)
[2021-03-31] MEDS: HALOPERIDOL 5 MG TABLET PO PRN ×2 (08:01→12:34)
[2021-03-31] MEDS: FUROSEMIDE 20 MG TABLET PO SCH (08:01)
[2021-03-31 08:23] VITALS: BP 111/66
[2021-03-31 10:44] LABS: CHOL/HDL RATIO 3.4 (3.9-5.7)
[2021-03-31] MEDS ORDERED: OLAN7.5T22 PO (14:03)
[2021-03-31] MEDS ORDERED: CEPH500C3 PO (14:03)
[2021-03-31] MEDS ORDERED: DIVA-112 PO (14:03)
[2021-03-31] MEDS ORDERED: FURO20 PO ×2 (14:03→18:13)
[2021-03-31] MEDS ORDERED: DIVA-111 PO (17:41)
[2021-03-31] MEDS ORDERED: CEPH250S35 PO (17:44)
[2021-03-31] MEDS ORDERED: ONDA-104 PO ×2 (17:49)
[2021-03-31] MEDS ORDERED: QUET200T PO (17:53)
[2021-03-31] MEDS ORDERED: DIAZ5TAB5 PO (18:13)
[2021-03-31] MEDS ORDERED: OLAN10TA74 PO (18:13)
[2021-03-31] MEDS ORDERED: TIZA4TAB6 PO (18:13)
[2021-03-31] MEDS ORDERED: OMEP20 PO (18:13)
[2021-03-31] MEDS ORDERED: GABA-1181 PO (18:13)
== END 2021-03-31 14:57 | disposition home or self-care (01) | DRG 750 ==
LOC: EMS 19:16 → B3A 22:41
PROVIDERS: ADMIT Psychiatry & Neurology Psychiatry; ATTEND Psychiatry & Neurology Psychiatry
DX: F25.1 Schizoaffective disorder, depressive type (principal); R45.851 Suicidal ideations; Z68.43 Body mass index [BMI] 50.0-59.9, adult; E66.9 Obesity, unspecified; F12.90 Cannabis use, unspecified, uncomplicated; F41.9 Anxiety disorder, unspecified; G47.00 Insomnia, unspecified; I10 Essential (primary) hypertension; J45.909 Unspecified asthma, uncomplicated; K59.00 Constipation, unspecified; Z20.822 Contact with and (suspected) exposure to COVID-19
CPT/HCPCS: 80053; 80061; 85025; 90732; 99285; G0480; J1200; J1630; J2060

== ENCOUNTER 2021-03-31 16:16 | Emergency (ER) | payer MEDICAID, OTHER ==
[~2021-03-31] VITALS: Ht 160 cm; Wt 125.0 kg
[~2021-03-31 16:16] MED LIST changes: +ALBU8HFA IH; +BENZ0.5T44 PO; -BUSP15 PO; +CEPH500C3 PO; +DIAZ5TAB5 PO; +DIVA-111 PO; +DIVA-112 PO; -FLUO-191 PO; +FURO20 PO; +GABA-1181 PO; +ONDA-104 PO; -OXCA300T57 PO; -PRAZ2 PO; +TIZA2CAP PO
[2021-03-31 17:26] LABS: AMPHET/METH SCREEN,URINE NEGATIVE (NEGATIVE); BARBITURATE SCREEN, URINE NEGATIVE (NEGATIVE); BENZODIAZEPINES SCREEN,URINE POSITIVE (NEGATIVE); CANNABINOID SCREEN,URINE NEGATIVE (NEGATIVE); COCAINE SCREEN,URINE NEGATIVE (NEGATIVE); METHADONE SCREEN, URINE NEGATIVE (NEGATIVE); OPIATE SCREEN,URINE NEGATIVE (NEGATIVE); PHENCYCLIDINE SCREEN,URINE NEGATIVE (NEGATIVE)
[2021-03-31 17:36] LABS: COVID AG,FIA SOURCE NASOPHARYNGEAL
[2021-03-31 17:40] LABS: BASOPHILS % (AUTO) 1.2 % (0.0-2.0); EOSINOPHILS % (AUTO) 4.9 % (1.0-6.0); HEMATOCRIT 30.9 % (36-46); HEMOGLOBIN 10.3 g/dL (12.0-16.0); LYMPHOCYTES # (AUTO) 2.4 K/uL (1.0-4.8); LYMPHOCYTES % (AUTO) 26.2 % (22.0-44.0); MEAN CORPUSCULAR HEMOGLOBIN 29.8 pg (26.0-34.0); MEAN CORPUSCULAR HGB CONC 33.3 G/dL (31.0-37.0); MEAN CORPUSCULAR VOLUME 90 fL (80-100); MONOCYTES # (AUTO) 0.6 K/uL (0.1-1.0); MONOCYTES % (AUTO) 6.8 % (2.0-9.0); NEUTROPHILS # (AUTO) 5.5 K/uL (1.8-7.7); NEUTROPHILS % (AUTO) 60.9 % (40.0-70.0); PLATELET COUNT (AUTO) 348 K/uL (150-450); RED BLOOD CELL COUNT(AUTO) 3.44 MIL/uL (4.00-5.20)
[2021-03-31] MEDS ORDERED: DIVA-111 PO (17:41)
[2021-03-31] MEDS ORDERED: CEPH250S35 PO (17:44)
[2021-03-31] MEDS ORDERED: ONDA-104 PO ×2 (17:49)
[2021-03-31 17:51] LABS: ANION GAP 4 mmol/L (8-16); CALCIUM, TOTAL 8.8 mg/dL (8.8-10.5); CARBON DIOXIDE 28 mmol/L (22-29); CHLORIDE 104 mmol/L (98-107); CREATININE 0.94 mg/dL (0.60-1.30); GLOMERULAR FILTR. RATE CALC > 60 mL/min (>60); GLUCOSE,RANDOM 99 mg/dL (70-110); POTASSIUM 4.1 mmol/L (3.5-5.1); SODIUM SERUM 136 mmol/L (136-145); UREA NITROGEN, BLOOD 14 mg/dL (7-18)
[2021-03-31] MEDS ORDERED: QUET200T PO (17:53)
[2021-03-31 17:57] LABS: ALANINE AMINOTRANSFERASE 67 U/L (12-78); ALBUMIN 3.1 g/dL (3.4-5.0); ALKALINE PHOSPHATASE 66 U/L (46-116); ASPARTATE AMINOTRANSFERASE 31 U/L (15-37); BILIRUBIN,TOTAL 0.2 mg/dL (0.1-1.0); TOTAL PROTEIN, SERUM 6.9 g/dL (6.4-8.2); VALPROIC ACID 32 mcg/mL (50-100)
[2021-03-31] MEDS ORDERED: LORazepam 2 MG/ML VIAL IM ONE (18:00)
[2021-03-31] MEDS ORDERED: DiphenhydrAMINE HCL 50 MG/ML VIAL IM ONE (18:00)
[2021-03-31] MEDS ORDERED: HALOPERIDOL LACTATE 5 MG/ML VIAL IM ONE (18:00)
[2021-03-31] MEDS ORDERED: OLAN10TA74 PO (18:13)
[2021-03-31] MEDS ORDERED: GABA-1181 PO (18:13)
[2021-03-31] MEDS ORDERED: DIAZ5TAB5 PO (18:13)
[2021-03-31] MEDS ORDERED: OMEP20 PO (18:13)
[2021-03-31] MEDS ORDERED: TIZA4TAB6 PO (18:13)
[2021-03-31] MEDS ORDERED: FURO20 PO (18:13)
[2021-03-31 19:05] VITALS: BP 130/70
== END 2021-03-31 20:22 | disposition home or self-care (01) ==
LOC: EMS 16:21
DX: F25.1 Schizoaffective disorder, depressive type (principal); F31.9 Bipolar disorder, unspecified; J45.909 Unspecified asthma, uncomplicated; F41.9 Anxiety disorder, unspecified; Z20.822 Contact with and (suspected) exposure to COVID-19
CPT/HCPCS: 36415; 80053; 80164; 80307; 85025; 87426; 96372; 99291; G0480; J1200; J1630; J2060

== ENCOUNTER 2021-03-31 23:44 | Emergency (ER) | payer OTHER ==
[~2021-03-31] VITALS: Ht 162.6 cm; Wt 118.2 kg
[~2021-03-31 23:44] MED LIST changes: +CEPH250S35 PO; +OLAN10TA74 PO; +OMEP20 PO; +TIZA4TAB6 PO
[2021-04-01 00:18] LABS: BASOPHILS % (AUTO) 0.5 % (0.0-2.0); EOSINOPHILS % (AUTO) 5.2 % (1.0-6.0); HEMATOCRIT 31.2 % (36-46); HEMOGLOBIN 10.4 g/dL (12.0-16.0); LYMPHOCYTES # (AUTO) 2.7 K/uL (1.0-4.8); LYMPHOCYTES % (AUTO) 28.6 % (22.0-44.0); MEAN CORPUSCULAR HGB CONC 33.5 G/dL (31.0-37.0); MEAN CORPUSCULAR VOLUME 89 fL (80-100); MONOCYTES # (AUTO) 0.8 K/uL (0.1-1.0); MONOCYTES % (AUTO) 8.8 % (2.0-9.0); NEUTROPHILS # (AUTO) 5.5 K/uL (1.8-7.7); NEUTROPHILS % (AUTO) 56.9 % (40.0-70.0); PLATELET COUNT (AUTO) 301 K/uL (150-450); RED BLOOD CELL COUNT(AUTO) 3.49 MIL/uL (4.00-5.20)
[2021-04-01 00:27] LABS: CALCIUM, TOTAL 8.2 mg/dL (8.8-10.5); CARBON DIOXIDE 25 mmol/L (22-29); CHLORIDE 104 mmol/L (98-107); CREATININE 0.91 mg/dL (0.60-1.30); GLOMERULAR FILTR. RATE CALC > 60 mL/min (>60); GLUCOSE,RANDOM 111 mg/dL (70-110); POTASSIUM 3.8 mmol/L (3.5-5.1); UREA NITROGEN, BLOOD 16 mg/dL (7-18)
[2021-04-01 00:32] LABS: PROTHROMBIN TIME 10.3 SEC (9.4-11.6)
[2021-04-01 00:37] LABS: SALICYLATE < 2.8 mg/dL (2.8-20.0)
[2021-04-01 00:38] LABS: ACETAMINOPHEN < 2 mcg/mL (10-30)
[2021-04-01 00:40] LABS: B-TYPE NATRIURETIC PEPTIDE 13 pg/mL (0-100)
[2021-04-01 00:53] LABS: ALANINE AMINOTRANSFERASE 58 U/L (12-78); ALBUMIN 2.8 g/dL (3.4-5.0); ALKALINE PHOSPHATASE 61 U/L (46-116); ANION GAP 8 mmol/L (8-16); ASPARTATE AMINOTRANSFERASE 27 U/L (15-37); BILIRUBIN,TOTAL 0.1 mg/dL (0.1-1.0); CREATINE KINASE, TOTAL ONLY 232 U/L (26-192); HCG,QUANTITATIVE < 1 mIU/mL (0-6); SODIUM SERUM 137 mmol/L (136-145); TOTAL PROTEIN, SERUM 6.3 g/dL (6.4-8.2)
[2021-04-01 04:49] LABS: ACETAMINOPHEN < 2 mcg/mL (10-30); VALPROIC ACID 30 mcg/mL (50-100)
[2021-04-01 06:52] VITALS: BP 110/57
[2021-04-01] MEDS ORDERED: IBUPROFEN 200 MG TABLET PO ONE (09:15)
[2021-04-01 09:28] LABS: APPEARANCE,URINE CLEAR (CLEAR); BILIRUBIN,URINE NEGATIVE (NEGATIVE); GLUCOSE, URINE (UA) NEGATIVE (NEGATIVE); KETONES,URINE NEGATIVE (NEGATIVE); LEUKOCYTE ESTERASE ,URINE NEGATIVE (NEGATIVE); NITRATE,URINE NEGATIVE (NEGATIVE); OCCULT BLOOD,URINE NEGATIVE (NEGATIVE); PH,URINE 6.5 (5.0-8.0); PROTEIN,URINE NEGATIVE (NEGATIVE); UROBILINOGEN,URINE 0.2 mg/dL (<=1.0)
[2021-04-01 09:33] LABS: AMPHET/METH SCREEN,URINE NEGATIVE (NEGATIVE); BARBITURATE SCREEN, URINE NEGATIVE (NEGATIVE); BENZODIAZEPINES SCREEN,URINE POSITIVE (NEGATIVE); CANNABINOID SCREEN,URINE NEGATIVE (NEGATIVE); COCAINE SCREEN,URINE NEGATIVE (NEGATIVE); METHADONE SCREEN, URINE NEGATIVE (NEGATIVE); OPIATE SCREEN,URINE NEGATIVE (NEGATIVE); PHENCYCLIDINE SCREEN,URINE NEGATIVE (NEGATIVE)
== END 2021-04-01 12:14 | disposition home or self-care (01) ==
LOC: EMS 23:45
DX: T43.592A Poisoning by other antipsychotics and neuroleptics, intentional self-harm, initial encounter (principal); J45.909 Unspecified asthma, uncomplicated; F31.9 Bipolar disorder, unspecified; F25.9 Schizoaffective disorder, unspecified; Z88.6 Allergy status to analgesic agent; Z79.899 Other long term (current) drug therapy; Y92.89 Other specified places as the place of occurrence of the external cause
CPT/HCPCS: 36415; 71045; 80053; 80164; 80307; 81003; 82140; 82550; 83735; 83880; 84484; 84702; 85025; 85610; 85730; 93005 ×2; 99285; G0480; G0481

== ENCOUNTER 2021-05-07 03:40 | Inpatient (IN) | payer MEDICAID ==
[~2021-05-07] VITALS: Ht 160 cm; Wt 147.5 kg
[~2021-05-07 03:40] MED LIST changes: -ALBU8HFA IH; -BENZ0.5T44 PO; -CEPH250S35 PO; -DIVA-112 PO; -TIZA2CAP PO; -TRAZ-257 PO
[2021-05-07 10:15] VITALS: BP 132/82
[2021-05-07 10:49] VITALS: BP 144/95
[2021-05-07] MEDS: LORazepam 2 MG TABLET PO PRN ×3 (11:30→20:46)
[2021-05-07] MEDS: HALOPERIDOL 5 MG TABLET PO PRN ×3 (11:30→20:46)
[2021-05-07] MEDS ORDERED: PETROLATUM,WHITE 28 GM JELLY TP PRN (14:15)
[2021-05-07] MEDS ORDERED: ONDANSETRON HCL 4 MG TABLET PO PRN (14:15)
[2021-05-07] MEDS ORDERED: BACITRACIN 28 GM OINTMENT TP PRN (14:15)
[2021-05-07] MEDS ORDERED: ALBUTEROL SULFATE HFA 90 MCG/PUFF 8 GM INHALER IH PRN (14:15)
[2021-05-07] MEDS ORDERED: LOPERAMIDE HCL 2 MG CAPSULE PO PRN (14:15)
[2021-05-07] MEDS ORDERED: OMEPRAZOLE 20 MG CAPSULE PO PRN (14:15)
[2021-05-07] MEDS ORDERED: ACETAMINOPHEN 325 MG TABLET PO PRN ×2 (14:15)
[2021-05-07] MEDS ORDERED: CloNIDine HCL 0.1 MG TABLET PO PRN (14:15)
[2021-05-07] MEDS ORDERED: BENZOCAINE/MENTHOL LOZENGE PO PRN (14:15)
[2021-05-07] MEDS ORDERED: MAG HYDROX/AL HYDROX/SIMETH ES 30 ML SUSPENSION UDCUP PO PRN (14:15)
[2021-05-07] MEDS ORDERED: MAGNESIUM HYDROXIDE SUSPENSION 30 ML UDCUP PO PRN (14:15)
[2021-05-07] MEDS ORDERED: DOCUSATE SODIUM 100 MG CAPSULE PO PRN (14:15)
[2021-05-07] MEDS: FUROSEMIDE 20 MG TABLET PO SCH (14:23)
[2021-05-07 16:10] VITALS: BP 137/57
[2021-05-07] MEDS: DIVALPROEX SODIUM 500 MG DR TABLET PO SCH (16:13)
[2021-05-07] MEDS: GABAPENTIN 300 MG CAPSULE PO SCH (16:13)
[2021-05-07] MEDS: TiZANidine HCL 4 MG TABLET PO PRN (20:21)
[2021-05-07] MEDS ORDERED: OLANZapine 7.5 MG TABLET PO SCH (21:00)
[2021-05-08 01:05] VITALS: BP 133/59
[2021-05-08] MEDS: LORazepam 2 MG TABLET PO PRN ×2 (06:23→10:49)
[2021-05-08] MEDS: TiZANidine HCL 4 MG TABLET PO PRN ×2 (06:23→12:24)
[2021-05-08 06:24] VITALS: BP 142/85
[2021-05-08 07:44] LABS: AMPHET/METH SCREEN,URINE NEGATIVE (NEGATIVE); BARBITURATE SCREEN, URINE NEGATIVE (NEGATIVE); BENZODIAZEPINES SCREEN,URINE POSITIVE (NEGATIVE); CANNABINOID SCREEN,URINE NEGATIVE (NEGATIVE); COCAINE SCREEN,URINE NEGATIVE (NEGATIVE); METHADONE SCREEN, URINE NEGATIVE (NEGATIVE); OPIATE SCREEN,URINE NEGATIVE (NEGATIVE)
[2021-05-08 07:45] LABS: PHENCYCLIDINE SCREEN,URINE NEGATIVE (NEGATIVE)
[2021-05-08 08:00] VITALS: BP 136/88
[2021-05-08] MEDS: DIVALPROEX SODIUM 500 MG DR TABLET PO SCH (09:15)
[2021-05-08] MEDS: GABAPENTIN 300 MG CAPSULE PO SCH ×2 (09:24→12:18)
[2021-05-08] MEDS: FUROSEMIDE 20 MG TABLET PO SCH (09:24)
[2021-05-08] MEDS: HALOPERIDOL 5 MG TABLET PO PRN (12:17)
== END 2021-05-08 21:46 | disposition home or self-care (01) | DRG 750 ==
LOC: B3A 10:00
PROVIDERS: ADMIT Psychiatry & Neurology Psychiatry; ATTEND Psychiatry & Neurology Psychiatry
DX: F25.9 Schizoaffective disorder, unspecified (principal); E66.9 Obesity, unspecified; F41.9 Anxiety disorder, unspecified; G47.00 Insomnia, unspecified; G89.29 Other chronic pain; I10 Essential (primary) hypertension; J45.909 Unspecified asthma, uncomplicated; K59.00 Constipation, unspecified; M54.9 Dorsalgia, unspecified; Z20.822 Contact with and (suspected) exposure to COVID-19

== ENCOUNTER 2024-07-04 23:28 | Emergency (ER) | payer MEDICARE, OTHER ==
[~2024-07-04] VITALS: Ht 177.8 cm; Wt 136.4 kg
[~2024-07-04 23:28] MED LIST changes: +BUDE10.32 IH; +CELE-125 PO; -CEPH500C3 PO; -DIAZ5TAB5 PO; -DIVA-111 PO; +DIVA-153 PO; +DULO20CA71 PO; -FURO20 PO; -GABA-1181 PO; +LEVE-71 PO; +NORE5TAB7 PO; -OLAN10TA74 PO; -OLAN7.5T22 PO; -OMEP20 PO; -ONDA-104 PO; +OXYC10TA48 PO; +PREG75CA76 PO; -QUET200T PO; +TIRZ2.5P SQ; -TIZA4TAB6 PO; +VALS1TAB73 PO
[2024-07-04 23:33] VITALS: TEMP 98.4
[2024-07-05] MEDS: LevETIRAcetam 1,000 MG in DEXTROSE 5%-WATER 100 ML IV ONE (00:39)
[2024-07-05 01:06] LABS: BASOPHILS % (AUTO) 1.2 % (0.0-2.0); EOSINOPHILS % (AUTO) 5.8 % (1.0-6.0); HEMATOCRIT 29.1 % (36-46); HEMOGLOBIN 9.4 g/dL (12.0-16.0); LYMPHOCYTES % (AUTO) 35.6 % (22.0-44.0); MEAN CORPUSCULAR HEMOGLOBIN 29.7 pg (26.0-34.0); MEAN CORPUSCULAR HGB CONC 32.4 G/dL (31.0-37.0); MEAN CORPUSCULAR VOLUME 92 fL (80-100); MONOCYTES # (AUTO) 0.9 K/uL (0.1-1.0); MONOCYTES % (AUTO) 10.6 % (2.0-9.0); NEUTROPHILS % (AUTO) 46.8 % (40.0-70.0); PLATELET COUNT (AUTO) 270 K/uL (150-450); RED BLOOD CELL COUNT(AUTO) 3.18 MIL/uL (4.00-5.20); RED CELL DISTRIBUTION WIDTH 15.1 % (11.5-14.5); WHITE BLOOD COUNT (AUTO) 8.5 K/uL (4.5-11.0)
[2024-07-05 01:15] LABS: ANION GAP 0 mmol/L (8-16); CALCIUM, TOTAL 7.9 mg/dL (8.8-10.5); CARBON DIOXIDE 29 mmol/L (22-29); CHLORIDE 105 mmol/L (98-107); CREATININE 1.62 mg/dL (0.60-1.30); GLOMERULAR FILTR. RATE CALC 43 mL/min (>60); GLUCOSE,RANDOM 100 mg/dL (70-110); POTASSIUM 3.8 mmol/L (3.5-5.1); SODIUM SERUM 134 mmol/L (136-145); UREA NITROGEN, BLOOD 16 mg/dL (7-18)
[2024-07-05 01:21] LABS: ALANINE AMINOTRANSFERASE 33 U/L (12-78); ALBUMIN 2.5 g/dL (3.4-5.0); ALKALINE PHOSPHATASE 57 U/L (46-116); ASPARTATE AMINOTRANSFERASE 48 U/L (15-37); BILIRUBIN,TOTAL 0.2 mg/dL (0.1-1.0); TOTAL PROTEIN, SERUM 6.4 g/dL (6.4-8.2)
[2024-07-05 01:24] LABS: LACTIC ACID 1.7 mmol/L (0.4-2.0)
[2024-07-05] MEDS: SODIUM CHLORIDE 0.9% 1,000 ML IV ONE (02:26)
[2024-07-05] MEDS: FAMOTIDINE 20 MG TABLET PO ONE (02:26)
[2024-07-05 03:29] VITALS: BP 99/58; PULSE 76; RESP 16; O2SAT 100
[2024-07-05] MEDS: MAG HYDROX/ALUMINUM HYD/SIMETH 30 ML SUSPENSION UDCUP PO ONE (03:48)
[2024-07-05] MEDS ORDERED: MORPHINE SULFATE 2 MG/ML SYRINGE IVP ONE (04:15)
[2024-07-05] MEDS: HYDROCODONE/ACETAMINOPHEN 5-325 MG TABLET PO ONE (04:16)
[2024-07-05 04:29] LABS: APPEARANCE,URINE CLEAR (CLEAR); BILIRUBIN,URINE NEGATIVE (NEGATIVE); COLOR,URINE LIGHT YELLOW (YELLOW); GLUCOSE, URINE (UA) NEGATIVE (NEGATIVE); KETONES,URINE NEGATIVE (NEGATIVE); LEUKOCYTE ESTERASE ,URINE NEGATIVE (NEGATIVE); NITRATE,URINE NEGATIVE (NEGATIVE); OCCULT BLOOD,URINE NEGATIVE (NEGATIVE); PH,URINE 5.5 (5.0-8.0); PH,URINE DRUG SCREEN 5.5 (5.0-8.0); PROTEIN,URINE NEGATIVE (NEGATIVE); SPECIFIC GRAVITIY, URINE 1.016 (1.003-1.030); UROBILINOGEN,URINE <=1.0 mg/dL (<=1.0)
[2024-07-05 04:37] LABS: ALCOHOL, URINE DRUG SCREEN NEGATIVE (NEGATIVE); AMPHET/METH SCREEN,URINE NEGATIVE (NEGATIVE); BARBITURATE SCREEN, URINE NEGATIVE (NEGATIVE); BENZODIAZEPINES SCREEN,URINE POSITIVE (NEGATIVE); CANNABINOID SCREEN,URINE POSITIVE (NEGATIVE); COCAINE SCREEN,URINE NEGATIVE (NEGATIVE); METHADONE SCREEN, URINE NEGATIVE (NEGATIVE); OPIATE SCREEN,URINE POSITIVE (NEGATIVE); PHENCYCLIDINE SCREEN,URINE NEGATIVE (NEGATIVE)
== END 2024-07-05 04:34 | disposition home or self-care (01) ==
LOC: EMS 23:29
DX: G40.909 Epilepsy, unspecified, not intractable, without status epilepticus (principal); N17.9 Acute kidney failure, unspecified; F41.9 Anxiety disorder, unspecified; J45.909 Unspecified asthma, uncomplicated; F31.9 Bipolar disorder, unspecified; F20.9 Schizophrenia, unspecified; D64.9 Anemia, unspecified; Z88.5 Allergy status to narcotic agent; Z79.1 Long term (current) use of non-steroidal anti-inflammatories (NSAID); Z79.3 Long term (current) use of hormonal contraceptives; Z86.718 Personal history of other venous thrombosis and embolism; Z79.899 Other long term (current) drug therapy
CPT/HCPCS: 99284; 80053; 83605; 84703; 85025; 36415; 82962; 80307; 81003; 96365; 96361; J0712; J7060; J7030

== ENCOUNTER 2024-07-20 15:44 | Emergency (ER) | payer MEDICARE, OTHER ==
[~2024-07-20] VITALS: Ht 162.6 cm; Wt 175.1 kg
[2024-07-20 16:26] VITALS: TEMP 98.3
[2024-07-20 16:51] LABS: GLUCOMETER DEV NAME(LOC) ERT.6; GLUCOSE,POINT OF CARE 118 MG/DL (70-110)
[2024-07-20] MEDS ORDERED: IOHEXOL 300 MG/ML 100 ML VIAL ONE (16:54)
[2024-07-20] MEDS ORDERED: SODIUM CHLORIDE 0.9% 100 ML ONE (16:54)
[2024-07-20] MEDS ORDERED: 0.9% SODIUM CHLORIDE 10 ML SYRINGE IVP ONE (16:54)
[2024-07-20] MEDS: FAMOTIDINE 20 MG/2 ML VIAL IVP ONE (17:15)
[2024-07-20] MEDS: ACETAMINOPHEN 500 MG TABLET PO ONE (17:15)
[2024-07-20] MEDS: SODIUM CHLORIDE 0.9% 1,000 ML IV ONE (17:16)
[2024-07-20] MEDS: ONDANSETRON HCL 4 MG/2 ML VIAL IVP ONE (17:16)
[2024-07-20 17:21] LABS: BASOPHILS % (AUTO) 0.4 % (0.0-2.0); EOSINOPHILS % (AUTO) 2.4 % (1.0-6.0); HEMOGLOBIN 10.9 g/dL (12.0-16.0); LYMPHOCYTES # (AUTO) 2.2 K/uL (1.0-4.8); LYMPHOCYTES % (AUTO) 29.1 % (22.0-44.0); MEAN CORPUSCULAR HEMOGLOBIN 29.7 pg (26.0-34.0); MEAN CORPUSCULAR VOLUME 90 fL (80-100); MONOCYTES # (AUTO) 0.7 K/uL (0.1-1.0); MONOCYTES % (AUTO) 9.1 % (2.0-9.0); NEUTROPHILS # (AUTO) 4.4 K/uL (1.8-7.7); PLATELET COUNT (AUTO) 228 K/uL (150-450); RED BLOOD CELL COUNT(AUTO) 3.66 MIL/uL (4.00-5.20); WHITE BLOOD COUNT (AUTO) 7.5 K/uL (4.5-11.0)
[2024-07-20 17:31] LABS: B-TYPE NATRIURETIC PEPTIDE 16 pg/mL (0-100)
[2024-07-20] MEDS: MORPHINE SULFATE 2 MG/ML SYRINGE IVP ONE ×3 (17:31→21:02)
[2024-07-20 17:32] LABS: ANION GAP 5 mmol/L (8-16); CARBON DIOXIDE 32 mmol/L (22-29); CHLORIDE 103 mmol/L (98-107); GLOMERULAR FILTR. RATE CALC > 60 mL/min (>60); GLUCOSE,RANDOM 125 mg/dL (70-110); SODIUM SERUM 140 mmol/L (136-145); UREA NITROGEN, BLOOD 13 mg/dL (7-18)
[2024-07-20 17:39] LABS: TROPONIN I-HIGH SENSITIVITY 8 ng/L (<51)
[2024-07-20 17:57] LABS: ALANINE AMINOTRANSFERASE 35 U/L (12-78); ALBUMIN 2.6 g/dL (3.4-5.0); ALKALINE PHOSPHATASE 54 U/L (46-116); ASPARTATE AMINOTRANSFERASE 37 U/L (15-37); BILIRUBIN,TOTAL 0.2 mg/dL (0.1-1.0); CREATINE KINASE, TOTAL ONLY 233 U/L (26-192); TOTAL PROTEIN, SERUM 6.6 g/dL (6.4-8.2)
[2024-07-20 22:15] VITALS: BP 132/82; PULSE 82; RESP 18; O2SAT 96
== END 2024-07-20 22:46 | disposition home or self-care (01) ==
LOC: EMS 15:44
DX: R55 Syncope and collapse (principal); R11.2 Nausea with vomiting, unspecified; F41.9 Anxiety disorder, unspecified; F31.9 Bipolar disorder, unspecified; F20.9 Schizophrenia, unspecified; J44.89 Other specified chronic obstructive pulmonary disease; G40.909 Epilepsy, unspecified, not intractable, without status epilepticus; Z88.5 Allergy status to narcotic agent
CPT/HCPCS: 99285; 70450; 96374; 96375; 71045; 96361; 80053; 82550; 82962; 83880; 84484; 85025; 36415; 72125; 74177; 93005; 96376; J3490; J2270; J2405; J7030; J7050; Q9967

== ENCOUNTER 2024-09-20 14:43 | Emergency (ER) | payer MEDICARE, OTHER ==
[~2024-09-20] VITALS: Ht 162.6 cm; Wt 172.7 kg
[2024-09-20 15:02] VITALS: TEMP 97.8
[2024-09-20 15:42] LABS: BASOPHILS % (AUTO) 0.5 % (0.0-2.0); EOSINOPHILS % (AUTO) 3.1 % (1.0-6.0); HEMATOCRIT 37.2 % (36-46); HEMOGLOBIN 12.1 g/dL (12.0-16.0); LYMPHOCYTES # (AUTO) 2.3 K/uL (1.0-4.8); LYMPHOCYTES % (AUTO) 27.5 % (22.0-44.0); MEAN CORPUSCULAR HEMOGLOBIN 28.6 pg (26.0-34.0); MEAN CORPUSCULAR HGB CONC 32.5 G/dL (31.0-37.0); MEAN CORPUSCULAR VOLUME 88 fL (80-100); MONOCYTES # (AUTO) 0.6 K/uL (0.1-1.0); MONOCYTES % (AUTO) 7.5 % (2.0-9.0); NEUTROPHILS # (AUTO) 5.1 K/uL (1.8-7.7); NEUTROPHILS % (AUTO) 61.4 % (40.0-70.0); PLATELET COUNT (AUTO) 264 K/uL (150-450); RED BLOOD CELL COUNT(AUTO) 4.23 MIL/uL (4.00-5.20); RED CELL DISTRIBUTION WIDTH 15.2 % (11.5-14.5); WHITE BLOOD COUNT (AUTO) 8.3 K/uL (4.5-11.0)
[2024-09-20 15:49] LABS: ANION GAP 7 mmol/L (8-16); CALCIUM, TOTAL 8.5 mg/dL (8.8-10.5); CARBON DIOXIDE 30 mmol/L (22-29); CHLORIDE 104 mmol/L (98-107); CREATININE 0.91 mg/dL (0.60-1.30); GLOMERULAR FILTR. RATE CALC > 60 mL/min (>60); GLUCOSE,RANDOM 119 mg/dL (70-110); POTASSIUM 3.8 mmol/L (3.5-5.1); SODIUM SERUM 141 mmol/L (136-145); UREA NITROGEN, BLOOD 12 mg/dL (7-18)
[2024-09-20] MEDS: LevETIRAcetam 1,000 MG in DEXTROSE 5%-WATER 100 ML IV ONE (16:14)
[2024-09-20] MEDS: OxyCODONE HCL/ACETAMINOPHEN 10-325 MG TABLET PO ONE (16:15)
[2024-09-20] MEDS: SODIUM CHLORIDE 0.9% 1,000 ML IV ONE ×2 (16:15→19:00)
[2024-09-20] MEDS: DIAZEPAM 5 MG TABLET PO ONE (18:39)
[2024-09-20 20:10] VITALS: BP 129/77; PULSE 82; RESP 18; O2SAT 96
== END 2024-09-20 20:38 | disposition home or self-care (01) ==
LOC: EMS 14:43
DX: G40.909 Epilepsy, unspecified, not intractable, without status epilepticus (principal); E11.9 Type 2 diabetes mellitus without complications; I10 Essential (primary) hypertension; F20.9 Schizophrenia, unspecified; F31.9 Bipolar disorder, unspecified; F41.9 Anxiety disorder, unspecified; J44.9 Chronic obstructive pulmonary disease, unspecified; Z88.5 Allergy status to narcotic agent; Z79.1 Long term (current) use of non-steroidal anti-inflammatories (NSAID); Z86.718 Personal history of other venous thrombosis and embolism; Z91.148 Patient's other noncompliance with medication regimen for other reason; Z79.899 Other long term (current) drug therapy
CPT/HCPCS: 99284; 96365; 96361; 80048; 83605; 84703; 85025; 36415; J0712; J7060; J7030

== ENCOUNTER 2024-09-23 17:07 | Emergency (ER) | payer MEDICARE, OTHER ==
[~2024-09-23] VITALS: Ht 162.6 cm; Wt 167.9 kg
[2024-09-23 17:51] VITALS: TEMP 97.9
[2024-09-23 18:09] LABS: BASOPHILS % (AUTO) 0.3 % (0.0-2.0); EOSINOPHILS % (AUTO) 3.9 % (1.0-6.0); HEMATOCRIT 34.3 % (36-46); HEMOGLOBIN 11.3 g/dL (12.0-16.0); LYMPHOCYTES # (AUTO) 2.8 K/uL (1.0-4.8); MEAN CORPUSCULAR HEMOGLOBIN 29.2 pg (26.0-34.0); MEAN CORPUSCULAR HGB CONC 32.8 G/dL (31.0-37.0); MEAN CORPUSCULAR VOLUME 89 fL (80-100); MONOCYTES # (AUTO) 0.6 K/uL (0.1-1.0); MONOCYTES % (AUTO) 6.6 % (2.0-9.0); NEUTROPHILS # (AUTO) 5.2 K/uL (1.8-7.7); NEUTROPHILS % (AUTO) 58.2 % (40.0-70.0); PLATELET COUNT (AUTO) 277 K/uL (150-450); RED BLOOD CELL COUNT(AUTO) 3.85 MIL/uL (4.00-5.20); RED CELL DISTRIBUTION WIDTH 15.3 % (11.5-14.5)
[2024-09-23 18:21] LABS: ANION GAP 4 mmol/L (8-16); CALCIUM, TOTAL 8.1 mg/dL (8.8-10.5); CARBON DIOXIDE 31 mmol/L (22-29); CHLORIDE 101 mmol/L (98-107); GLOMERULAR FILTR. RATE CALC > 60 mL/min (>60); GLUCOSE,RANDOM 145 mg/dL (70-110); POTASSIUM 3.5 mmol/L (3.5-5.1); SODIUM SERUM 136 mmol/L (136-145); UREA NITROGEN, BLOOD 14 mg/dL (7-18)
[2024-09-23 18:24] LABS: B-TYPE NATRIURETIC PEPTIDE 14 pg/mL (0-100); PROTHROMBIN TIME 10.3 SEC (9.4-11.6)
[2024-09-23 18:41] LABS: TROPONIN I-HIGH SENSITIVITY 12 ng/L (<51)
[2024-09-23 18:48] LABS: CREATINE KINASE, TOTAL ONLY 147 U/L (26-192)
[2024-09-23 19:30] VITALS: BP 108/52; PULSE 75; RESP 20; O2SAT 95
== END 2024-09-23 19:32 | disposition home or self-care (01) ==
LOC: EMS 17:07
DX: R07.2 Precordial pain (principal); J44.9 Chronic obstructive pulmonary disease, unspecified; F41.9 Anxiety disorder, unspecified; F20.9 Schizophrenia, unspecified; Z88.5 Allergy status to narcotic agent; Z79.1 Long term (current) use of non-steroidal anti-inflammatories (NSAID); Z79.3 Long term (current) use of hormonal contraceptives; Z79.899 Other long term (current) drug therapy
CPT/HCPCS: 71045; 80048; 82550; 83880; 84484; 85025; 85610; 85730; 93005; 99285; 36415-L1; 36415-TC

== ENCOUNTER 2024-09-25 16:31 | Emergency (ER) | payer MEDICARE, OTHER ==
[~2024-09-25] VITALS: Ht 162.6 cm; Wt 168.0 kg
[2024-09-25] MEDS: SODIUM CHLORIDE 0.9% 1,000 ML IV ONE (16:51)
[2024-09-25 16:55] VITALS: TEMP 98.8
[2024-09-25] MEDS: LevETIRAcetam 1,000 MG in DEXTROSE 5%-WATER 100 ML IV ONE (17:08)
[2024-09-25 17:57] LABS: BASOPHILS % (AUTO) 0.8 % (0.0-2.0); EOSINOPHILS % (AUTO) 4.3 % (1.0-6.0); HEMATOCRIT 34.1 % (36-46); HEMOGLOBIN 11.2 g/dL (12.0-16.0); LYMPHOCYTES # (AUTO) 2.8 K/uL (1.0-4.8); LYMPHOCYTES % (AUTO) 40.5 % (22.0-44.0); MEAN CORPUSCULAR HGB CONC 32.8 G/dL (31.0-37.0); MEAN CORPUSCULAR VOLUME 88 fL (80-100); MONOCYTES # (AUTO) 0.6 K/uL (0.1-1.0); MONOCYTES % (AUTO) 8.1 % (2.0-9.0); NEUTROPHILS # (AUTO) 3.1 K/uL (1.8-7.7); NEUTROPHILS % (AUTO) 46.3 % (40.0-70.0); PLATELET COUNT (AUTO) 259 K/uL (150-450); RED BLOOD CELL COUNT(AUTO) 3.85 MIL/uL (4.00-5.20); RED CELL DISTRIBUTION WIDTH 15.6 % (11.5-14.5); WHITE BLOOD COUNT (AUTO) 6.8 K/uL (4.5-11.0)
[2024-09-25] MEDS: MORPHINE SULFATE 2 MG/ML SYRINGE IVP ONE (18:02)
[2024-09-25 18:04] LABS: ANION GAP 5 mmol/L (8-16); CALCIUM, TOTAL 8.3 mg/dL (8.8-10.5); CARBON DIOXIDE 32 mmol/L (22-29); CHLORIDE 101 mmol/L (98-107); CREATININE 0.89 mg/dL (0.60-1.30); GLOMERULAR FILTR. RATE CALC > 60 mL/min (>60); GLUCOSE,RANDOM 118 mg/dL (70-110); SODIUM SERUM 138 mmol/L (136-145); UREA NITROGEN, BLOOD 13 mg/dL (7-18)
[2024-09-25 18:10] LABS: APPEARANCE,URINE CLEAR (CLEAR); BILIRUBIN,URINE NEGATIVE (NEGATIVE); COLOR,URINE COLORLESS (YELLOW); GLUCOSE, URINE (UA) NEGATIVE (NEGATIVE); KETONES,URINE NEGATIVE (NEGATIVE); LEUKOCYTE ESTERASE ,URINE NEGATIVE (NEGATIVE); NITRATE,URINE NEGATIVE (NEGATIVE); OCCULT BLOOD,URINE NEGATIVE (NEGATIVE); PROTEIN,URINE NEGATIVE (NEGATIVE); SPECIFIC GRAVITIY, URINE 1.005 (1.003-1.030); UROBILINOGEN,URINE <=1.0 mg/dL (<=1.0)
[2024-09-25 18:35] VITALS: BP 125/87; PULSE 83; RESP 19; O2SAT 96
[2024-09-25 18:39] LABS: AMPHET/METH SCREEN,URINE NEGATIVE (NEGATIVE); BARBITURATE SCREEN, URINE NEGATIVE (NEGATIVE); BENZODIAZEPINES SCREEN,URINE POSITIVE (NEGATIVE); CANNABINOID SCREEN,URINE NEGATIVE (NEGATIVE); COCAINE SCREEN,URINE NEGATIVE (NEGATIVE); METHADONE SCREEN, URINE NEGATIVE (NEGATIVE); OPIATE SCREEN,URINE POSITIVE (NEGATIVE); PHENCYCLIDINE SCREEN,URINE NEGATIVE (NEGATIVE)
[2024-09-25 18:40] LABS: ALCOHOL, URINE DRUG SCREEN NEGATIVE (NEGATIVE)
[2024-09-25] MEDS: OxyCODONE HCL/ACETAMINOPHEN 5-325 MG TABLET PO ONE (19:54)
== END 2024-09-25 20:11 | disposition home or self-care (01) ==
LOC: EMS 16:31
DX: G40.909 Epilepsy, unspecified, not intractable, without status epilepticus (principal); J44.9 Chronic obstructive pulmonary disease, unspecified; F41.9 Anxiety disorder, unspecified; F31.9 Bipolar disorder, unspecified; F20.9 Schizophrenia, unspecified; Z88.5 Allergy status to narcotic agent; Z79.1 Long term (current) use of non-steroidal anti-inflammatories (NSAID); Z79.3 Long term (current) use of hormonal contraceptives; Z79.899 Other long term (current) drug therapy
CPT/HCPCS: 99285; 70450; 96365; 96375; 80048; 84703; 85025; 36415; 72125; 80307; 81003; J0712; J2270; J7060; J7030

== ENCOUNTER → 2024-10-01 | Emergency (ER) | payer MEDICARE, OTHER ==
[~2024-10-01] VITALS: Ht 167.6 cm; Wt 180.8 kg
[~2024-10-01] MED LIST changes: +ALBU18HF12 IH; +AMOX-457 PO; +BUSP10TA23 PO; +CHLO25TA70 PO; +LACO100T14 PO; +LIDO700A30 TD; +LevETIRAcetam 500 MG TABLET PO ONE; +MIRT-92 PO; +ONDA-243 PO; +OXYC-618 PO; +RISP120S SQ; +TIRZ5PEN SQ
[2024-10-01 20:01] VITALS: BP 143/88; PULSE 96; RESP 20; TEMP 98.5; O2SAT 100
[2024-10-01 20:52] LABS: BASOPHILS % (AUTO) 0.2 % (0.0-2.0); EOSINOPHILS % (AUTO) 4.5 % (1.0-6.0); HEMATOCRIT 31.3 % (36-46); HEMOGLOBIN 10.5 g/dL (12.0-16.0); LYMPHOCYTES # (AUTO) 2.5 K/uL (1.0-4.8); LYMPHOCYTES % (AUTO) 34.1 % (22.0-44.0); MEAN CORPUSCULAR HEMOGLOBIN 29.9 pg (26.0-34.0); MEAN CORPUSCULAR HGB CONC 33.6 G/dL (31.0-37.0); MEAN CORPUSCULAR VOLUME 89 fL (80-100); MONOCYTES # (AUTO) 0.6 K/uL (0.1-1.0); MONOCYTES % (AUTO) 7.7 % (2.0-9.0); NEUTROPHILS # (AUTO) 3.9 K/uL (1.8-7.7); NEUTROPHILS % (AUTO) 53.5 % (40.0-70.0); PLATELET COUNT (AUTO) 285 K/uL (150-450); RED BLOOD CELL COUNT(AUTO) 3.52 MIL/uL (4.00-5.20); RED CELL DISTRIBUTION WIDTH 15.7 % (11.5-14.5); WHITE BLOOD COUNT (AUTO) 7.2 K/uL (4.5-11.0)
[2024-10-01] MEDS: LevETIRAcetam 1,000 MG in DEXTROSE 5%-WATER 100 ML IV ONE (20:54)
[2024-10-01] MEDS: LORazepam 2 MG/ML VIAL IVP ONE (20:54)
[2024-10-01 21:04] LABS: B-TYPE NATRIURETIC PEPTIDE 9 pg/mL (0-100)
[2024-10-01 21:09] LABS: TROPONIN I-HIGH SENSITIVITY 11 ng/L (<51)
[2024-10-01 22:44] LABS: ANION GAP 7 mmol/L (8-16); CALCIUM, TOTAL 7.9 mg/dL (8.8-10.5); CARBON DIOXIDE 29 mmol/L (22-29); CHLORIDE 101 mmol/L (98-107); CREATININE 0.98 mg/dL (0.60-1.30); GLOMERULAR FILTR. RATE CALC > 60 mL/min (>60); GLUCOSE,RANDOM 126 mg/dL (70-110); POTASSIUM 3.4 mmol/L (3.5-5.1); SODIUM SERUM 137 mmol/L (136-145); UREA NITROGEN, BLOOD 7 mg/dL (7-18)
[2024-10-01 23:08] LABS: ALANINE AMINOTRANSFERASE 21 U/L (12-78); ALBUMIN 2.4 g/dL (3.4-5.0); ALKALINE PHOSPHATASE 57 U/L (46-116); ASPARTATE AMINOTRANSFERASE 30 U/L (15-37); BILIRUBIN,TOTAL 0.1 mg/dL (0.1-1.0); CREATINE KINASE, TOTAL ONLY 915 U/L (26-192)
[2024-10-01 23:09] LABS: BILIRUBIN,DIRECT < 0.05 mg/dL (0.00-0.20)
== END | disposition left against medical advice (07) ==
LOC: EMS 19:53
DX: G40.409 Other generalized epilepsy and epileptic syndromes, not intractable, without status epilepticus (principal); J44.9 Chronic obstructive pulmonary disease, unspecified; F20.9 Schizophrenia, unspecified; F41.9 Anxiety disorder, unspecified; Z88.5 Allergy status to narcotic agent; Z79.1 Long term (current) use of non-steroidal anti-inflammatories (NSAID); Z79.3 Long term (current) use of hormonal contraceptives; Z86.718 Personal history of other venous thrombosis and embolism; Z79.899 Other long term (current) drug therapy
CPT/HCPCS: 36573; 80048; 80076; 82550; 83880; 84484; 84703; 85025; 36415; 71045; 99285; 93005; 96365; 96375; J2060; J0712; J7060

== ENCOUNTER 2024-10-04 14:09 | Inpatient (IN) | payer MEDICARE, OTHER ==
[~2024-10-04] VITALS: Ht 167.6 cm; Wt 179.2 kg
[2024-10-04 14:00] VITALS: PULSE 127; RESP 16; O2SAT 100
[~2024-10-04 14:09] MED LIST changes: -ALBU18HF12 IH; -AMOX-457 PO; -BUSP10TA23 PO; -CHLO25TA70 PO; -LACO100T14 PO; -LIDO700A30 TD; -LevETIRAcetam 500 MG TABLET PO ONE; -MIRT-92 PO; -ONDA-243 PO; -OXYC-618 PO; -RISP120S SQ; -TIRZ5PEN SQ
[2024-10-04 14:15] VITALS: PULSE 127; RESP 16; O2SAT 100
[2024-10-04 14:41] LABS: BASOPHILS % (AUTO) 0.3 % (0.0-2.0); EOSINOPHILS % (AUTO) 4.6 % (1.0-6.0); HEMATOCRIT 32.9 % (36-46); HEMOGLOBIN 10.7 g/dL (12.0-16.0); LYMPHOCYTES # (AUTO) 3.2 K/uL (1.0-4.8); LYMPHOCYTES % (AUTO) 49.8 % (22.0-44.0); MEAN CORPUSCULAR HEMOGLOBIN 29.1 pg (26.0-34.0); MEAN CORPUSCULAR HGB CONC 32.6 G/dL (31.0-37.0); MEAN CORPUSCULAR VOLUME 89 fL (80-100); MONOCYTES # (AUTO) 0.5 K/uL (0.1-1.0); MONOCYTES % (AUTO) 8.5 % (2.0-9.0); NEUTROPHILS # (AUTO) 2.3 K/uL (1.8-7.7); NEUTROPHILS % (AUTO) 36.8 % (40.0-70.0); PLATELET COUNT (AUTO) 269 K/uL (150-450); RED BLOOD CELL COUNT(AUTO) 3.68 MIL/uL (4.00-5.20); RED CELL DISTRIBUTION WIDTH 16.2 % (11.5-14.5); WHITE BLOOD COUNT (AUTO) 6.3 K/uL (4.5-11.0)
[2024-10-04 14:51] LABS: ALCOHOL, URINE DRUG SCREEN NEGATIVE (NEGATIVE); AMPHET/METH SCREEN,URINE NEGATIVE (NEGATIVE); BARBITURATE SCREEN, URINE NEGATIVE (NEGATIVE); BENZODIAZEPINES SCREEN,URINE POSITIVE (NEGATIVE); CANNABINOID SCREEN,URINE NEGATIVE (NEGATIVE); COCAINE SCREEN,URINE NEGATIVE (NEGATIVE); METHADONE SCREEN, URINE NEGATIVE (NEGATIVE); OPIATE SCREEN,URINE POSITIVE (NEGATIVE); PHENCYCLIDINE SCREEN,URINE NEGATIVE (NEGATIVE)
[2024-10-04 14:56] LABS: ANION GAP 1 mmol/L (8-16); CALCIUM, TOTAL 7.9 mg/dL (8.8-10.5); CARBON DIOXIDE 36 mmol/L (22-29); CHLORIDE 99 mmol/L (98-107); CREATININE 0.79 mg/dL (0.60-1.30); GLOMERULAR FILTR. RATE CALC > 60 mL/min (>60); GLUCOSE,RANDOM 117 mg/dL (70-110); POTASSIUM 3.6 mmol/L (3.5-5.1); SODIUM SERUM 136 mmol/L (136-145); UREA NITROGEN, BLOOD 6 mg/dL (7-18)
[2024-10-04 14:58] LABS: LIPASE 38 U/L (16-77)
[2024-10-04 15:00] LABS: ACETAMINOPHEN < 2 mcg/mL (10-30); TROPONIN I-HIGH SENSITIVITY 15 ng/L (<51)
[2024-10-04 15:04] LABS: LACTIC ACID 1.6 mmol/L (0.4-2.0)
[2024-10-04 15:05] LABS: ALCOHOL, BLOOD (SERUM) < 3 mg/dL (0-10)
[2024-10-04 15:06] LABS: APPEARANCE,URINE CLEAR (CLEAR); BILIRUBIN,URINE NEGATIVE (NEGATIVE); COLOR,URINE YELLOW (YELLOW); GLUCOSE, URINE (UA) NEGATIVE (NEGATIVE); KETONES,URINE NEGATIVE (NEGATIVE); LEUKOCYTE ESTERASE ,URINE NEGATIVE (NEGATIVE); NITRATE,URINE NEGATIVE (NEGATIVE); OCCULT BLOOD,URINE NEGATIVE (NEGATIVE); PROTEIN,URINE TRACE mg/dL (NEGATIVE); UROBILINOGEN,URINE <=1.0 mg/dL (<=1.0)
[2024-10-04 15:11] LABS: ABG BASE EXCESS 3.7 mmol/L (-2.0-3.0); ABG CARBOXYHEMOGLOBIN 5.3 % (0.5-1.5); ABG HCO3 26.7 mmol/L (21.0-28.0); ABG METHEMOGLOBIN 0.9 % (0.0-1.5); ABG OXYGEN CONTENT 15.8 mL/dL (15.0-23.0); ABG OXYGEN SATURATION 99.5 % (94.0-98.0); ABG OXYHEMOGLOBIN 93.3 % (94.0-98.0); ABG PH 7.298 (7.350-7.450); ABG TOTAL HEMOGLOBIN 11.7 G/dL (12.0-16.0); PO2, ARTERIAL BG 193.3 mmHg (83.0-108.0); SOURCE, BLOOD GAS ARTERIAL; TEMPERATURE, FAHRENHEIT, BG 98.6 FAHREN (96.0-98.6)
[2024-10-04 15:12] LABS: ABG PCO2 63 mmHg (32.0-45.0)
[2024-10-04 15:13] LABS: ALLEN TEST, BLOOD GAS POS; O2 DEVICE,BLOOD GAS VENTILATOR (ROOM AIR); PEEP,BG 5 cm H2O; SITE, BLOOD GAS RT RADIAL; VT, ABG 380 ml
[2024-10-04 15:16] LABS: COVID AG,FIA SOURCE NASAL SWAB
[2024-10-04 15:16] LABS: SALICYLATE 3.2 mg/dL (2.8-20.0)
[2024-10-04] MEDS: PROPOFOL 1000 MG/ISO-OSM 100 ML IV PRN (15:23)
[2024-10-04 15:29] LABS: BACTERIA,URINE Many /HPF (None Seen); RBC,URINE 0-2 /HPF (0-2); SQUAMOUS EPITHELIAL CELL,UR Few /LPF (None Seen)
[2024-10-04 15:38] LABS: SARS-COV2 (COVID) ANTIGEN,FIA Negative (Negative)
[2024-10-04 15:40] VITALS: PULSE 120; RESP 20; O2SAT 100
[2024-10-04] MEDS ORDERED: BISACODYL 10 MG RECTAL RECTAL SUPPOSITORY PR PRN (16:45)
[2024-10-04] MEDS ORDERED: ONDANSETRON HCL 4 MG/2 ML VIAL IVP PRN (16:45)
[2024-10-04] MEDS: PIPERACILLIN/TAZO 3.375 GM/D5W 50 ML IV SCH (17:15)
[2024-10-04] MEDS: SODIUM CHLORIDE 0.9% 1,000 ML IV ONE (17:15)
[2024-10-04] MEDS: LevETIRAcetam 1,000 MG in DEXTROSE 5%-WATER 100 ML IV SCH (17:15)
[2024-10-04] MEDS: MIDAZOLAM HCL 100 MG in SODIUM CHLORIDE 0.9% 180 ML IV PRN (18:19)
[2024-10-04 18:45] VITALS: PULSE 80; RESP 20; O2SAT 100
[2024-10-04 19:45] VITALS: PULSE 80; RESP 20; O2SAT 100
[2024-10-04] MEDS: CHLORHEXIDINE GLUCONATE 2% TOWELETTE [2'S/6'S] TP SCH (22:16)
[2024-10-04 22:23] LABS: ABG BASE EXCESS 6.9 mmol/L (-2.0-3.0); ABG CARBOXYHEMOGLOBIN 0.3 % (0.5-1.5); ABG METHEMOGLOBIN 0.1 % (0.0-1.5); ABG OXYGEN CONTENT 16.3 mL/dL (15.0-23.0); ABG OXYGEN SATURATION 99.3 % (94.0-98.0); ABG OXYHEMOGLOBIN 98.9 % (94.0-98.0); ABG PCO2 48 mmHg (32.0-45.0); ABG PH 7.435 (7.350-7.450); ABG TOTAL HEMOGLOBIN 11.3 G/dL (12.0-16.0); ALLEN TEST, BLOOD GAS Positive; PO2, ARTERIAL BG 245.5 mmHg (83.0-108.0); SITE, BLOOD GAS LFT RADIAL; SOURCE, BLOOD GAS ARTERIAL; TEMPERATURE, FAHRENHEIT, BG 98.6 FAHREN (96.0-98.6)
[2024-10-04 22:24] LABS: O2 DEVICE,BLOOD GAS VENT (ROOM AIR); PEEP,BG 5 cm H2O; VT, ABG 400 ml
[2024-10-04] MEDS: HEPARIN SODIUM,PORCINE 5,000 UNITS/ML VIAL SQ SCH (23:04)
[2024-10-04 23:25] VITALS: PULSE 71; RESP 24; O2SAT 100
[2024-10-05] VITALS (10 sets, daily range): BP systolic 141–148; BP diastolic 93–104; PULSE 75–94; RESP 24–35; TEMP 99.1–99.2; O2SAT 92–100
[2024-10-05] MEDS ORDERED: ONDA-243 PO (11:53)
[2024-10-05] MEDS ORDERED: OXYC-618 PO (11:53)
[2024-10-05] MEDS ORDERED: BUSP10TA23 PO (11:53)
[2024-10-05] MEDS ORDERED: ALBU18HF12 IH (11:53)
[2024-10-05] MEDS ORDERED: LIDO700A30 TD (11:53)
[2024-10-05] MEDS ORDERED: MIRT-92 PO (11:53)
[2024-10-05] MEDS ORDERED: CHLO25TA70 PO (11:53)
[2024-10-05] MEDS ORDERED: RISP120S SQ (11:53)
[2024-10-05] MEDS ORDERED: TIRZ5PEN SQ (11:53)
[2024-10-05] MEDS ORDERED: PROPOFOL 1000 MG/ISO-OSM 100 ML ONE (17:25)
[2024-10-05] MEDS: PROPOFOL 1000 MG/ISO-OSM 100 ML IV PRN (18:16)
[2024-10-05 18:36] LABS: ABG BASE EXCESS 7.2 mmol/L (-2.0-3.0); ABG CARBOXYHEMOGLOBIN 0.4 % (0.5-1.5); ABG HCO3 30.1 mmol/L (21.0-28.0); ABG METHEMOGLOBIN 0.3 % (0.0-1.5); ABG OXYGEN CONTENT 15.8 mL/dL (15.0-23.0); ABG OXYGEN SATURATION 93.4 % (94.0-98.0); ABG OXYHEMOGLOBIN 92.7 % (94.0-98.0); ABG PCO2 46 mmHg (32.0-45.0); ABG PH 7.453 (7.350-7.450); ABG TOTAL HEMOGLOBIN 12.1 G/dL (12.0-16.0); PO2, ARTERIAL BG 68.1 mmHg (83.0-108.0); SOURCE, BLOOD GAS ARTERIAL; TEMPERATURE, FAHRENHEIT, BG 98.6 FAHREN (96.0-98.6)
[2024-10-05 18:37] LABS: ALLEN TEST, BLOOD GAS Positive; O2 DEVICE,BLOOD GAS VENTILATOR (ROOM AIR); SITE, BLOOD GAS RT RADIAL
[2024-10-05 18:39] LABS: PEEP,BG 5 cm H2O; VT, ABG 400 ml
[2024-10-06] VITALS (13 sets, daily range): BP systolic 116–164; BP diastolic 66–102; PULSE 80–96; RESP 24–37; TEMP 95.6–99.6; O2SAT 90–99
[2024-10-06 05:03] LABS: PH, GASTRIC OKAY
[2024-10-06 05:04] LABS: OCCULT BLOOD,GASTRIC FLUID POSITIVE (NEGATIVE)
[2024-10-06 08:30] LABS: BASOPHILS % (AUTO) 0.9 % (0.0-2.0); EOSINOPHILS % (AUTO) 1.4 % (1.0-6.0); HEMATOCRIT 34.1 % (36-46); HEMOGLOBIN 11.7 g/dL (12.0-16.0); LYMPHOCYTES # (AUTO) 1.5 K/uL (1.0-4.8); LYMPHOCYTES % (AUTO) 19.1 % (22.0-44.0); MEAN CORPUSCULAR HEMOGLOBIN 30.2 pg (26.0-34.0); MEAN CORPUSCULAR HGB CONC 34.3 G/dL (31.0-37.0); MEAN CORPUSCULAR VOLUME 88 fL (80-100); MONOCYTES # (AUTO) 0.7 K/uL (0.1-1.0); MONOCYTES % (AUTO) 8.5 % (2.0-9.0); NEUTROPHILS # (AUTO) 5.4 K/uL (1.8-7.7); NEUTROPHILS % (AUTO) 70.1 % (40.0-70.0); PLATELET COUNT (AUTO) 292 K/uL (150-450); RED BLOOD CELL COUNT(AUTO) 3.88 MIL/uL (4.00-5.20); RED CELL DISTRIBUTION WIDTH 16.4 % (11.5-14.5); WHITE BLOOD COUNT (AUTO) 7.8 K/uL (4.5-11.0)
[2024-10-06] MEDS: HydrALAZINE HCL 20 MG/ML VIAL IVP PRN (08:31)
[2024-10-06 08:41] LABS: ANION GAP 2 mmol/L (8-16); CALCIUM, TOTAL 8.5 mg/dL (8.8-10.5); CARBON DIOXIDE 34 mmol/L (22-29); CHLORIDE 101 mmol/L (98-107); CREATININE 1.01 mg/dL (0.60-1.30); GLOMERULAR FILTR. RATE CALC > 60 mL/min (>60); GLUCOSE,RANDOM 120 mg/dL (70-110); POTASSIUM 3.6 mmol/L (3.5-5.1); SODIUM SERUM 137 mmol/L (136-145); UREA NITROGEN, BLOOD 7 mg/dL (7-18)
[2024-10-06] MEDS ORDERED: SODIUM CHLORIDE 0.9% 250 ML IV ONE (16:12)
[2024-10-06] MEDS: POTASSIUM CHL 10 MEQ/WATER 50 ML IV PRN (16:14)
[2024-10-06] MEDS: FentaNYL CIT 1000MCG/0.9% NACL 100 ML IV PRN (16:17)
[2024-10-06 19:49] LABS: ANION GAP 5 mmol/L (8-16); CALCIUM, TOTAL 8.3 mg/dL (8.8-10.5); CARBON DIOXIDE 31 mmol/L (22-29); CHLORIDE 101 mmol/L (98-107); CREATININE 0.98 mg/dL (0.60-1.30); GLOMERULAR FILTR. RATE CALC > 60 mL/min (>60); GLUCOSE,RANDOM 117 mg/dL (70-110); POTASSIUM 3.7 mmol/L (3.5-5.1); SODIUM SERUM 137 mmol/L (136-145); UREA NITROGEN, BLOOD 7 mg/dL (7-18)
[2024-10-07] VITALS (14 sets, daily range): BP systolic 141–156; BP diastolic 88–102; PULSE 74–97; RESP 24–28; TEMP 98.2–99.2; O2SAT 92–100
[2024-10-07] MEDS ORDERED: SODIUM CHLORIDE 0.9% 500 ML IV ONE (02:20)
[2024-10-07] MEDS ORDERED: SODIUM CHLORIDE 0.9% 250 ML IV ONE (02:20)
[2024-10-07 06:43] LABS: BASOPHILS % (AUTO) 0.3 % (0.0-2.0); EOSINOPHILS % (AUTO) 3.2 % (1.0-6.0); HEMATOCRIT 32.1 % (36-46); HEMOGLOBIN 10.8 g/dL (12.0-16.0); LYMPHOCYTES # (AUTO) 1.8 K/uL (1.0-4.8); LYMPHOCYTES % (AUTO) 23.8 % (22.0-44.0); MEAN CORPUSCULAR HEMOGLOBIN 29.9 pg (26.0-34.0); MEAN CORPUSCULAR HGB CONC 33.8 G/dL (31.0-37.0); MEAN CORPUSCULAR VOLUME 89 fL (80-100); MONOCYTES # (AUTO) 0.7 K/uL (0.1-1.0); MONOCYTES % (AUTO) 9.4 % (2.0-9.0); NEUTROPHILS # (AUTO) 4.9 K/uL (1.8-7.7); NEUTROPHILS % (AUTO) 63.3 % (40.0-70.0); PLATELET COUNT (AUTO) 269 K/uL (150-450); RED BLOOD CELL COUNT(AUTO) 3.62 MIL/uL (4.00-5.20); RED CELL DISTRIBUTION WIDTH 16.3 % (11.5-14.5); WHITE BLOOD COUNT (AUTO) 7.7 K/uL (4.5-11.0)
[2024-10-07 06:52] LABS: ANION GAP 5 mmol/L (8-16); CARBON DIOXIDE 33 mmol/L (22-29); CHLORIDE 101 mmol/L (98-107); GLOMERULAR FILTR. RATE CALC > 60 mL/min (>60); GLUCOSE,RANDOM 116 mg/dL (70-110); POTASSIUM 3.4 mmol/L (3.5-5.1); SODIUM SERUM 139 mmol/L (136-145); UREA NITROGEN, BLOOD 7 mg/dL (7-18)
[2024-10-07] MEDS: WATER IV SCH (13:20)
[2024-10-07] MEDS: DEXTROSE 5% IV SCH (13:20)
[2024-10-07] MEDS: LACOSAMIDE IV SCH (13:20)
[2024-10-08] VITALS (12 sets, daily range): BP systolic 116–154; BP diastolic 74–108; PULSE 72–92; RESP 21–38; TEMP 97.6–99.8; O2SAT 95–100
[2024-10-08] MEDS: PANTOPRAZOLE SODIUM 40 MG/VIAL IVP SCH (11:13)
[2024-10-08] MEDS: LORazepam 2 MG/ML VIAL IVP PRN (12:00)
[2024-10-08 12:23] LABS: ANION GAP 7 mmol/L (8-16); CALCIUM, TOTAL 8.2 mg/dL (8.8-10.5); CARBON DIOXIDE 27 mmol/L (22-29); CHLORIDE 102 mmol/L (98-107); CREATININE 0.87 mg/dL (0.60-1.30); GLOMERULAR FILTR. RATE CALC > 60 mL/min (>60); GLUCOSE,RANDOM 122 mg/dL (70-110); POTASSIUM 3.3 mmol/L (3.5-5.1); SODIUM SERUM 136 mmol/L (136-145); UREA NITROGEN, BLOOD 6 mg/dL (7-18)
[2024-10-08 14:39] LABS: BASOPHILS % (AUTO) 0.7 % (0.0-2.0); EOSINOPHILS % (AUTO) 3.9 % (1.0-6.0); HEMATOCRIT 34.9 % (36-46); HEMOGLOBIN 11.5 g/dL (12.0-16.0); LYMPHOCYTES # (AUTO) 1.7 K/uL (1.0-4.8); LYMPHOCYTES % (AUTO) 20.3 % (22.0-44.0); MEAN CORPUSCULAR HEMOGLOBIN 29.1 pg (26.0-34.0); MEAN CORPUSCULAR HGB CONC 32.9 G/dL (31.0-37.0); MEAN CORPUSCULAR VOLUME 88 fL (80-100); MONOCYTES % (AUTO) 12.6 % (2.0-9.0); NEUTROPHILS # (AUTO) 5.1 K/uL (1.8-7.7); NEUTROPHILS % (AUTO) 62.5 % (40.0-70.0); PLATELET COUNT (AUTO) 279 K/uL (150-450); RED BLOOD CELL COUNT(AUTO) 3.94 MIL/uL (4.00-5.20); RED CELL DISTRIBUTION WIDTH 16.1 % (11.5-14.5); WHITE BLOOD COUNT (AUTO) 8.2 K/uL (4.5-11.0)
[2024-10-08] MEDS: ACETAMINOPHEN 325 MG TABLET PO PRN (21:31)
[2024-10-09] VITALS (13 sets, daily range): BP systolic 122–168; BP diastolic 74–113; PULSE 69–103; RESP 24–40; TEMP 97.1–100.1; O2SAT 93–100
[2024-10-09 11:48] LABS: ABG BASE EXCESS -1.9 mmol/L (-2.0-3.0); ABG CARBOXYHEMOGLOBIN 0.5 % (0.5-1.5); ABG HCO3 22.6 mmol/L (21.0-28.0); ABG METHEMOGLOBIN 0.3 % (0.0-1.5); ABG OXYGEN SATURATION 97.1 % (94.0-98.0); ABG OXYHEMOGLOBIN 96.3 % (94.0-98.0); ABG PCO2 49 mmHg (32.0-45.0); ABG TOTAL HEMOGLOBIN 11.7 G/dL (12.0-16.0); PO2, ARTERIAL BG 105.1 mmHg (83.0-108.0); SOURCE, BLOOD GAS ARTERIAL; TEMPERATURE, FAHRENHEIT, BG 98.5 FAHREN (96.0-98.6)
[2024-10-09 11:49] LABS: ALLEN TEST, BLOOD GAS Positive; O2 DEVICE,BLOOD GAS VENTILATOR (ROOM AIR); PEEP,BG 5 cm H2O; SITE, BLOOD GAS LFT RADIAL; SPONTANEOUS VT, BG 406 ml; VT, ABG 400 ml
[2024-10-09 13:16] LABS: BASOPHILS % (AUTO) 0.6 % (0.0-2.0); EOSINOPHILS % (AUTO) 4.9 % (1.0-6.0); HEMATOCRIT 33.4 % (36-46); HEMOGLOBIN 11.1 g/dL (12.0-16.0); LYMPHOCYTES % (AUTO) 30.9 % (22.0-44.0); MEAN CORPUSCULAR HEMOGLOBIN 29.4 pg (26.0-34.0); MEAN CORPUSCULAR HGB CONC 33.3 G/dL (31.0-37.0); MEAN CORPUSCULAR VOLUME 88 fL (80-100); MONOCYTES # (AUTO) 0.9 K/uL (0.1-1.0); MONOCYTES % (AUTO) 9.5 % (2.0-9.0); NEUTROPHILS # (AUTO) 5.2 K/uL (1.8-7.7); NEUTROPHILS % (AUTO) 54.1 % (40.0-70.0); PLATELET COUNT (AUTO) 297 K/uL (150-450); RED BLOOD CELL COUNT(AUTO) 3.79 MIL/uL (4.00-5.20); RED CELL DISTRIBUTION WIDTH 16.3 % (11.5-14.5); WHITE BLOOD COUNT (AUTO) 9.7 K/uL (4.5-11.0)
[2024-10-09 13:29] LABS: ANION GAP 9 mmol/L (8-16); CALCIUM, TOTAL 8.4 mg/dL (8.8-10.5); CARBON DIOXIDE 26 mmol/L (22-29); CHLORIDE 103 mmol/L (98-107); CREATININE 0.86 mg/dL (0.60-1.30); GLOMERULAR FILTR. RATE CALC > 60 mL/min (>60); GLUCOSE,RANDOM 120 mg/dL (70-110); POTASSIUM 3.8 mmol/L (3.5-5.1); SODIUM SERUM 138 mmol/L (136-145); UREA NITROGEN, BLOOD 7 mg/dL (7-18)
[2024-10-09] MEDS: DEXMEDETOMIDINE 400 MCG/NS 100 ML IV PRN (14:53)
[2024-10-09] MEDS: QUEtiapine FUMARATE 25 MG TABLET PO SCH (15:25)
[2024-10-09] MEDS: VALPROIC ACID 250 MG/5 ML SOLUTION UDCUP PO SCH (20:40)
[2024-10-10] VITALS (12 sets, daily range): BP systolic 102–155; BP diastolic 65–92; PULSE 54–84; RESP 13–25; TEMP 98.2–100.7; O2SAT 96–98
[2024-10-10] MEDS ORDERED: SODIUM CHLORIDE 0.9% 250 ML IV ONE (00:57)
[2024-10-10 06:16] LABS: BASOPHILS % (AUTO) 0.4 % (0.0-2.0); EOSINOPHILS % (AUTO) 5.1 % (1.0-6.0); HEMATOCRIT 30.8 % (36-46); HEMOGLOBIN 10.3 g/dL (12.0-16.0); LYMPHOCYTES % (AUTO) 25.7 % (22.0-44.0); MEAN CORPUSCULAR HEMOGLOBIN 29.9 pg (26.0-34.0); MEAN CORPUSCULAR HGB CONC 33.5 G/dL (31.0-37.0); MEAN CORPUSCULAR VOLUME 89 fL (80-100); MONOCYTES # (AUTO) 0.7 K/uL (0.1-1.0); MONOCYTES % (AUTO) 8.4 % (2.0-9.0); NEUTROPHILS # (AUTO) 4.8 K/uL (1.8-7.7); NEUTROPHILS % (AUTO) 60.4 % (40.0-70.0); PLATELET COUNT (AUTO) 255 K/uL (150-450); RED BLOOD CELL COUNT(AUTO) 3.45 MIL/uL (4.00-5.20); RED CELL DISTRIBUTION WIDTH 15.5 % (11.5-14.5); WHITE BLOOD COUNT (AUTO) 7.9 K/uL (4.5-11.0)
[2024-10-10 06:27] LABS: ANION GAP 5 mmol/L (8-16); CALCIUM, TOTAL 8.4 mg/dL (8.8-10.5); CARBON DIOXIDE 27 mmol/L (22-29); CHLORIDE 105 mmol/L (98-107); CREATININE 0.84 mg/dL (0.60-1.30); GLOMERULAR FILTR. RATE CALC > 60 mL/min (>60); GLUCOSE,RANDOM 112 mg/dL (70-110); SODIUM SERUM 137 mmol/L (136-145); UREA NITROGEN, BLOOD 8 mg/dL (7-18)
[2024-10-10 14:50] LABS: ABG CARBOXYHEMOGLOBIN 0.2 % (0.5-1.5); ABG HCO3 24.4 mmol/L (21.0-28.0); ABG METHEMOGLOBIN 0.3 % (0.0-1.5); ABG OXYGEN CONTENT 14.3 mL/dL (15.0-23.0); ABG OXYGEN SATURATION 93.3 % (94.0-98.0); ABG OXYHEMOGLOBIN 92.8 % (94.0-98.0); ABG PCO2 43 mmHg (32.0-45.0); ABG PH 7.383 (7.350-7.450); ABG TOTAL HEMOGLOBIN 10.9 G/dL (12.0-16.0); PO2, ARTERIAL BG 77.1 mmHg (83.0-108.0); SOURCE, BLOOD GAS ARTERIAL; TEMPERATURE, FAHRENHEIT, BG 100.2 FAHREN (96.0-98.6)
[2024-10-10 14:54] LABS: ABG A-A DIFF O2 157.6 mmHg (10-20.0); ALLEN TEST, BLOOD GAS Positive; O2 DEVICE,BLOOD GAS VENTI MASK (ROOM AIR); SITE, BLOOD GAS LFT RADIAL
[2024-10-10] MEDS ORDERED: MORPHINE SULFATE 2 MG/ML SYRINGE IVP PRN (15:30)
[2024-10-10] MEDS: MORPHINE SULFATE 2 MG/ML SYRINGE IVP PRN (16:04)
[2024-10-11] VITALS (8 sets, daily range): BP systolic 130–154; BP diastolic 56–95; PULSE 78–90; RESP 21–32; TEMP 98.3–100.1; O2SAT 90–97
[2024-10-11 06:20] LABS: BASOPHILS % (AUTO) 0.5 % (0.0-2.0); EOSINOPHILS % (AUTO) 3.1 % (1.0-6.0); HEMATOCRIT 31.6 % (36-46); HEMOGLOBIN 10.3 g/dL (12.0-16.0); LYMPHOCYTES % (AUTO) 20.6 % (22.0-44.0); MEAN CORPUSCULAR HEMOGLOBIN 28.7 pg (26.0-34.0); MEAN CORPUSCULAR HGB CONC 32.6 G/dL (31.0-37.0); MEAN CORPUSCULAR VOLUME 88 fL (80-100); MONOCYTES # (AUTO) 0.7 K/uL (0.1-1.0); MONOCYTES % (AUTO) 7.3 % (2.0-9.0); NEUTROPHILS # (AUTO) 6.8 K/uL (1.8-7.7); NEUTROPHILS % (AUTO) 68.5 % (40.0-70.0); PLATELET COUNT (AUTO) 308 K/uL (150-450); RED BLOOD CELL COUNT(AUTO) 3.59 MIL/uL (4.00-5.20); RED CELL DISTRIBUTION WIDTH 15.8 % (11.5-14.5); WHITE BLOOD COUNT (AUTO) 9.9 K/uL (4.5-11.0)
[2024-10-11 06:28] LABS: ANION GAP 7 mmol/L (8-16); CALCIUM, TOTAL 8.8 mg/dL (8.8-10.5); CARBON DIOXIDE 30 mmol/L (22-29); CHLORIDE 103 mmol/L (98-107); CREATININE 0.83 mg/dL (0.60-1.30); GLOMERULAR FILTR. RATE CALC > 60 mL/min (>60); GLUCOSE,RANDOM 106 mg/dL (70-110); POTASSIUM 3.7 mmol/L (3.5-5.1); SODIUM SERUM 140 mmol/L (136-145); UREA NITROGEN, BLOOD 6 mg/dL (7-18)
[2024-10-11] MEDS: MORPHINE SULFATE 2 MG/ML SYRINGE IVP PRN (16:05)
[2024-10-12] VITALS: BP 151/93; PULSE 81; PULSE 95; RESP 29; TEMP 100; O2SAT 97
[2024-10-12 04:00] VITALS: BP 133/76; PULSE 76; PULSE 79; RESP 33; TEMP 99.9; O2SAT 94
[2024-10-12] MEDS ORDERED: SODIUM CHLORIDE 0.9% 250 ML IV ONE ×2 (05:46→21:20)
[2024-10-12 08:00] VITALS: BP 141/89; PULSE 69; RESP 14; TEMP 98.9; O2SAT 93
[2024-10-12 08:11] LABS: BASOPHILS % (AUTO) 0.6 % (0.0-2.0); EOSINOPHILS % (AUTO) 5.2 % (1.0-6.0); HEMATOCRIT 29.3 % (36-46); HEMOGLOBIN 9.8 g/dL (12.0-16.0); LYMPHOCYTES # (AUTO) 2.1 K/uL (1.0-4.8); LYMPHOCYTES % (AUTO) 24.9 % (22.0-44.0); MEAN CORPUSCULAR HEMOGLOBIN 29.2 pg (26.0-34.0); MEAN CORPUSCULAR HGB CONC 33.5 G/dL (31.0-37.0); MEAN CORPUSCULAR VOLUME 87 fL (80-100); MONOCYTES # (AUTO) 0.8 K/uL (0.1-1.0); MONOCYTES % (AUTO) 9.6 % (2.0-9.0); NEUTROPHILS # (AUTO) 5.1 K/uL (1.8-7.7); NEUTROPHILS % (AUTO) 59.7 % (40.0-70.0); PLATELET COUNT (AUTO) 305 K/uL (150-450); RED BLOOD CELL COUNT(AUTO) 3.35 MIL/uL (4.00-5.20); RED CELL DISTRIBUTION WIDTH 15.3 % (11.5-14.5); WHITE BLOOD COUNT (AUTO) 8.6 K/uL (4.5-11.0)
[2024-10-12 08:15] LABS: ANION GAP 9 mmol/L (8-16); CALCIUM, TOTAL 8.6 mg/dL (8.8-10.5); CARBON DIOXIDE 29 mmol/L (22-29); CHLORIDE 107 mmol/L (98-107); CREATININE 0.72 mg/dL (0.60-1.30); GLOMERULAR FILTR. RATE CALC > 60 mL/min (>60); GLUCOSE,RANDOM 105 mg/dL (70-110); POTASSIUM 3.7 mmol/L (3.5-5.1); SODIUM SERUM 145 mmol/L (136-145); UREA NITROGEN, BLOOD 8 mg/dL (7-18)
[2024-10-12 12:00] VITALS: BP 140/84; PULSE 77; RESP 14; TEMP 98.8; O2SAT 97
[2024-10-12 16:00] VITALS: BP 140/94; PULSE 80; RESP 14; TEMP 98.8; O2SAT 98
[2024-10-12 20:00] VITALS: BP 138/97; PULSE 65; RESP 21; TEMP 98; O2SAT 98
[2024-10-12] MEDS: OxyCODONE HCL/ACETAMINOPHEN 10-325 MG TABLET PO PRN (22:57)
[2024-10-12] MEDS ORDERED: SODIUM CHLORIDE 0.9% 500 ML IV ONE (23:43)
[2024-10-13] VITALS (7 sets, daily range): BP systolic 123–144; BP diastolic 78–98; PULSE 73–85; RESP 17–20; TEMP 98.1–99; O2SAT 95–100
[2024-10-13] MEDS ORDERED: SODIUM CHLORIDE 0.9% 500 ML IV ONE (04:27)
[2024-10-13] MEDS: BusPIRone HCL 10 MG TABLET PO SCH (16:00)
[2024-10-13] MEDS: ChlorproMAZINE HCL 25 MG TABLET PO SCH (21:25)
[2024-10-13] MEDS: DIVALPROEX SODIUM 500 MG ER TABLET PO SCH (21:25)
[2024-10-14 03:48] VITALS: BP 135/65; PULSE 81; RESP 18; TEMP 98.7; O2SAT 95
[2024-10-14 08:00] VITALS: BP 146/75; PULSE 88; RESP 18; TEMP 98.4; O2SAT 98
[2024-10-14] MEDS: DULoxetine HCL 20 MG CAPSULE PO SCH (08:06)
[2024-10-14 09:17] LABS: BASOPHILS % (AUTO) 0.8 % (0.0-2.0); EOSINOPHILS % (AUTO) 8.2 % (1.0-6.0); HEMATOCRIT 29.2 % (36-46); HEMOGLOBIN 9.7 g/dL (12.0-16.0); LYMPHOCYTES # (AUTO) 2.2 K/uL (1.0-4.8); LYMPHOCYTES % (AUTO) 36.8 % (22.0-44.0); MEAN CORPUSCULAR HEMOGLOBIN 29.3 pg (26.0-34.0); MEAN CORPUSCULAR HGB CONC 33.1 G/dL (31.0-37.0); MEAN CORPUSCULAR VOLUME 89 fL (80-100); MONOCYTES # (AUTO) 0.5 K/uL (0.1-1.0); MONOCYTES % (AUTO) 8.2 % (2.0-9.0); NEUTROPHILS # (AUTO) 2.8 K/uL (1.8-7.7); PLATELET COUNT (AUTO) 312 K/uL (150-450); RED BLOOD CELL COUNT(AUTO) 3.29 MIL/uL (4.00-5.20); RED CELL DISTRIBUTION WIDTH 15.5 % (11.5-14.5); WHITE BLOOD COUNT (AUTO) 6.1 K/uL (4.5-11.0)
[2024-10-14 09:26] LABS: ANION GAP 6 mmol/L (8-16); CALCIUM, TOTAL 8.4 mg/dL (8.8-10.5); CARBON DIOXIDE 31 mmol/L (22-29); CHLORIDE 104 mmol/L (98-107); CREATININE 0.84 mg/dL (0.60-1.30); GLOMERULAR FILTR. RATE CALC > 60 mL/min (>60); GLUCOSE,RANDOM 141 mg/dL (70-110); POTASSIUM 3.6 mmol/L (3.5-5.1); SODIUM SERUM 141 mmol/L (136-145); UREA NITROGEN, BLOOD 10 mg/dL (7-18)
[2024-10-14 12:00] VITALS: BP 133/78; PULSE 86; PULSE 88; RESP 18; TEMP 98.4; O2SAT 96
[2024-10-14] MEDS ORDERED: AMOX-457 PO (13:20)
[2024-10-14] MEDS ORDERED: LEVE-71 PO (13:20)
[2024-10-14] MEDS ORDERED: LACO100T14 PO (13:20)
[2024-10-14] MEDS ORDERED: DIVA-153 PO (13:20)
[2024-10-14] MEDS: LACOSAMIDE 100 MG TABLET PO ONE (14:23)
== END 2024-10-14 14:40 | disposition home health service (06) | DRG 100 ==
LOC: EMS 14:09 → EDH 16:40 → ICU 10-05 16:15 → 5S 10-05 16:32
PROVIDERS: ADMIT Internal Medicine; ATTEND Internal Medicine
PROC: 5A1955Z Respiratory Ventilation, Greater than 96 Consecutive Hours (ICD-10-PCS; principal; 2024-10-04)
PROC: 0BH17EZ Insertion of Endotracheal Airway into Trachea, Via Natural or Artificial Opening (ICD-10-PCS; 2024-10-04)
PROC: 05HB33Z Insertion of Infusion Device into Right Basilic Vein, Percutaneous Approach (ICD-10-PCS; 2024-10-07)
PROC: B54MZZA Ultrasonography of Right Upper Extremity Veins, Guidance (ICD-10-PCS; 2024-10-07)
DX: G40.901 Epilepsy, unspecified, not intractable, with status epilepticus (principal); J69.0 Pneumonitis due to inhalation of food and vomit; J96.00 Acute respiratory failure, unspecified whether with hypoxia or hypercapnia; E44.0 Moderate protein-calorie malnutrition; Z99.11 Dependence on respirator [ventilator] status; Z68.44 Body mass index [BMI] 60.0-69.9, adult; E66.01 Morbid (severe) obesity due to excess calories; F25.1 Schizoaffective disorder, depressive type; I10 Essential (primary) hypertension; Z20.822 Contact with and (suspected) exposure to COVID-19; Z91.148 Patient's other noncompliance with medication regimen for other reason; Z91.199 Patient's noncompliance with other medical treatment and regimen due to unspecified reason; F32.A Depression, unspecified; F41.9 Anxiety disorder, unspecified; G47.00 Insomnia, unspecified; M54.9 Dorsalgia, unspecified; Z79.899 Other long term (current) drug therapy
CPT/HCPCS: 36245; 36569; 36600; 70450; 71045; 71250; 76937; 80048; 80164; 80307; 81001; 82271; 82805; 83605; 83690; 84132; 84484; 84703; 85025; 87040; 87070; 87081; 87086; 92610; 93005; 94002; 94003; 97116; 97162; 97166; 97530; 97535; 99291; C9254; G0378; G0480; G0481; J0360; J0712; J1644; J2060; J2250; J2270; J2470; J2543; J2704; J3010; J3480; J7030; J7040; J7050; J7060; 36415-L1; 36415-TC

== ENCOUNTER 2024-11-02 17:03 | Emergency (ER) | payer MEDICARE, OTHER ==
[~2024-11-02] VITALS: Ht 162.6 cm; Wt 169.7 kg
[~2024-11-02 17:03] MED LIST changes: +ALBU18HF12 IH; +AMOX-457 PO; +BUSP10TA23 PO; -CELE-125 PO; +CHLO25TA70 PO; +LIDO700A30 TD; +OXYC-618 PO; -OXYC10TA48 PO; +RISP120S SQ; -TIRZ2.5P SQ; +TIRZ5PEN SQ
[2024-11-02 17:18] VITALS: TEMP 98.2
[2024-11-02 18:01] LABS: BASOPHILS % (AUTO) 0.5 % (0.0-2.0); EOSINOPHILS % (AUTO) 1.5 % (1.0-6.0); HEMATOCRIT 35.2 % (36-46); HEMOGLOBIN 11.5 g/dL (12.0-16.0); LYMPHOCYTES # (AUTO) 2.4 K/uL (1.0-4.8); LYMPHOCYTES % (AUTO) 31.3 % (22.0-44.0); MEAN CORPUSCULAR HEMOGLOBIN 28.6 pg (26.0-34.0); MEAN CORPUSCULAR HGB CONC 32.5 G/dL (31.0-37.0); MEAN CORPUSCULAR VOLUME 88 fL (80-100); MONOCYTES # (AUTO) 0.6 K/uL (0.1-1.0); MONOCYTES % (AUTO) 8.4 % (2.0-9.0); NEUTROPHILS # (AUTO) 4.4 K/uL (1.8-7.7); NEUTROPHILS % (AUTO) 58.3 % (40.0-70.0); PLATELET COUNT (AUTO) 278 K/uL (150-450); RED BLOOD CELL COUNT(AUTO) 4.01 MIL/uL (4.00-5.20); WHITE BLOOD COUNT (AUTO) 7.5 K/uL (4.5-11.0)
[2024-11-02] MEDS ORDERED: LACO200T4 PO (18:09)
[2024-11-02] MEDS ORDERED: TIZA-211 PO (18:09)
[2024-11-02] MEDS ORDERED: MIRT-92 PO (18:09)
[2024-11-02] MEDS ORDERED: CELE-125 PO (18:09)
[2024-11-02] MEDS ORDERED: LEVO200T10 PO (18:09)
[2024-11-02 18:12] LABS: CALCIUM, TOTAL 8.8 mg/dL (8.8-10.5); CARBON DIOXIDE 27 mmol/L (22-29); CREATININE 0.83 mg/dL (0.60-1.30); GLOMERULAR FILTR. RATE CALC > 60 mL/min (>60); GLUCOSE,RANDOM 108 mg/dL (70-110); POTASSIUM 3.4 mmol/L (3.5-5.1); SODIUM SERUM 140 mmol/L (136-145); UREA NITROGEN, BLOOD 6 mg/dL (7-18)
[2024-11-02 18:23] LABS: ALANINE AMINOTRANSFERASE 14 U/L (12-78); ALBUMIN 2.8 g/dL (3.4-5.0); ALKALINE PHOSPHATASE 63 U/L (46-116); ANION GAP 9 mmol/L (8-16); ASPARTATE AMINOTRANSFERASE 15 U/L (15-37); BILIRUBIN,TOTAL 0.2 mg/dL (0.1-1.0); CHLORIDE 104 mmol/L (98-107); HCG,QUANTITATIVE 2 mIU/mL (0-6); LIPASE 42 U/L (16-77); TOTAL PROTEIN, SERUM 7.2 g/dL (6.4-8.2)
[2024-11-02 18:33] LABS: COVID AG,FIA SOURCE NASAL SWAB
[2024-11-02] MEDS ORDERED: IOHEXOL 350 MG/ML 100 ML VIAL ONE (18:38)
[2024-11-02] MEDS ORDERED: SODIUM CHLORIDE 0.9% 100 ML ONE (18:38)
[2024-11-02] MEDS ORDERED: 0.9% SODIUM CHLORIDE 10 ML SYRINGE IVP ONE (18:38)
[2024-11-02 18:58] LABS: INFLUENZA TYPE A NEGATIVE FOR TYPE A (NEGATIVE); INFLUENZA TYPE B NEGATIVE FOR TYPE B (NEGATIVE); SARS-COV2 (COVID) ANTIGEN,FIA Negative (Negative)
[2024-11-02] MEDS: ONDANSETRON HCL 4 MG/2 ML VIAL IVP ONE (19:11)
[2024-11-02] MEDS: SODIUM CHLORIDE 0.9% 1,000 ML IV ONE (19:11)
[2024-11-02] MEDS: ACETAMINOPHEN 1000 MG/ISO-OSM 100 ML IV ONE (19:49)
[2024-11-02] MEDS ORDERED: LORazepam 2 MG/ML VIAL ONE (20:03)
[2024-11-02] MEDS: LORazepam 2 MG/ML VIAL IVP ONE (20:05)
[2024-11-02 21:00] VITALS: BP 145/93; PULSE 89; RESP 22; O2SAT 96
[2024-11-02] MEDS: MORPHINE SULFATE 4 MG/ML SYRINGE IVP ONE (21:08)
== END 2024-11-02 21:51 | disposition left against medical advice (07) ==
LOC: EMS 17:10
DX: R10.31 Right lower quadrant pain (principal); R11.2 Nausea with vomiting, unspecified; F41.9 Anxiety disorder, unspecified; J44.89 Other specified chronic obstructive pulmonary disease; F31.9 Bipolar disorder, unspecified; F20.9 Schizophrenia, unspecified; I10 Essential (primary) hypertension; Z79.3 Long term (current) use of hormonal contraceptives; Z79.899 Other long term (current) drug therapy; Z86.718 Personal history of other venous thrombosis and embolism; Z88.5 Allergy status to narcotic agent; Z20.822 Contact with and (suspected) exposure to COVID-19
CPT/HCPCS: 99285; 74177; 96365; 96375; 96361; 87426; 80048; 80076; 83690; 84702; 85025; 87804; 36415; Q9967; J2060; J2270; J2405; J7030; J7050; J0131

== ENCOUNTER 2024-11-03 16:58 | Emergency (ER) | payer MEDICARE, OTHER ==
[~2024-11-03] VITALS: Ht 165.1 cm; Wt 106.8 kg
[~2024-11-03 16:58] MED LIST changes: -AMOX-457 PO; +CELE-125 PO; +LACO200T4 PO; +LEVO200T10 PO; +MIRT-92 PO; +TIZA-211 PO
[2024-11-03 17:03] VITALS: TEMP 98.8
[2024-11-03 20:02] LABS: BASOPHILS % (AUTO) 0.6 % (0.0-2.0); EOSINOPHILS % (AUTO) 1.9 % (1.0-6.0); HEMATOCRIT 33.2 % (36-46); LYMPHOCYTES # (AUTO) 1.9 K/uL (1.0-4.8); LYMPHOCYTES % (AUTO) 23.2 % (22.0-44.0); MEAN CORPUSCULAR HEMOGLOBIN 29.1 pg (26.0-34.0); MEAN CORPUSCULAR HGB CONC 33.1 G/dL (31.0-37.0); MEAN CORPUSCULAR VOLUME 88 fL (80-100); MONOCYTES # (AUTO) 0.6 K/uL (0.1-1.0); MONOCYTES % (AUTO) 7.5 % (2.0-9.0); NEUTROPHILS # (AUTO) 5.5 K/uL (1.8-7.7); NEUTROPHILS % (AUTO) 66.8 % (40.0-70.0); PLATELET COUNT (AUTO) 261 K/uL (150-450); RED BLOOD CELL COUNT(AUTO) 3.77 MIL/uL (4.00-5.20); RED CELL DISTRIBUTION WIDTH 16.3 % (11.5-14.5); WHITE BLOOD COUNT (AUTO) 8.2 K/uL (4.5-11.0)
[2024-11-03 20:12] LABS: ANION GAP 7 mmol/L (8-16); CALCIUM, TOTAL 8.5 mg/dL (8.8-10.5); CARBON DIOXIDE 29 mmol/L (22-29); CHLORIDE 104 mmol/L (98-107); CREATININE 0.82 mg/dL (0.60-1.30); GLOMERULAR FILTR. RATE CALC > 60 mL/min (>60); GLUCOSE,RANDOM 108 mg/dL (70-110); POTASSIUM 3.3 mmol/L (3.5-5.1); SODIUM SERUM 140 mmol/L (136-145); UREA NITROGEN, BLOOD 3 mg/dL (7-18)
[2024-11-03] MEDS: HYDROCODONE/ACETAMINOPHEN 5-325 MG TABLET PO ONE (20:23)
[2024-11-03] MEDS: LOPERAMIDE HCL 2 MG CAPSULE PO ONE (20:23)
[2024-11-03] MEDS: DICYCLOMINE HCL 10 MG CAPSULE PO ONE (20:23)
[2024-11-03 20:29] LABS: ALANINE AMINOTRANSFERASE 16 U/L (12-78); ALBUMIN 2.7 g/dL (3.4-5.0); ALKALINE PHOSPHATASE 63 U/L (46-116); AMYLASE 40 U/L (25-115); ASPARTATE AMINOTRANSFERASE 11 U/L (15-37); BILIRUBIN,TOTAL 0.2 mg/dL (0.1-1.0); HCG,QUANTITATIVE < 1 mIU/mL (0-6); LIPASE 61 U/L (16-77)
[2024-11-03] MEDS: OxyCODONE HCL/ACETAMINOPHEN 10-325 MG TABLET PO ONE (22:04)
[2024-11-03 23:00] VITALS: BP 140/97; PULSE 101; RESP 18; O2SAT 98
== END 2024-11-03 23:27 | disposition home or self-care (01) ==
LOC: EMS 16:58
DX: R10.84 Generalized abdominal pain (principal); R19.7 Diarrhea, unspecified; F41.9 Anxiety disorder, unspecified; F31.9 Bipolar disorder, unspecified; J44.89 Other specified chronic obstructive pulmonary disease; F20.9 Schizophrenia, unspecified; E87.6 Hypokalemia; I10 Essential (primary) hypertension; Z79.1 Long term (current) use of non-steroidal anti-inflammatories (NSAID); Z79.3 Long term (current) use of hormonal contraceptives; Z79.899 Other long term (current) drug therapy; Z86.718 Personal history of other venous thrombosis and embolism; Z88.5 Allergy status to narcotic agent
CPT/HCPCS: 80048; 80076; 82150; 83690; 84702; 85025; 99285

== ENCOUNTER 2024-11-09 14:29 | Emergency (ER) | payer MEDICARE, OTHER ==
[~2024-11-09] VITALS: Ht 162.6 cm; Wt 172.0 kg
[2024-11-09 14:56] VITALS: BP 159/92; PULSE 104; RESP 20; TEMP 98.8; O2SAT 94
== END 2024-11-09 16:19 | disposition left against medical advice (07) ==
LOC: EMS 14:29
DX: R10.84 Generalized abdominal pain (principal); G40.909 Epilepsy, unspecified, not intractable, without status epilepticus; F41.9 Anxiety disorder, unspecified; J44.89 Other specified chronic obstructive pulmonary disease; F20.9 Schizophrenia, unspecified; Z79.1 Long term (current) use of non-steroidal anti-inflammatories (NSAID); Z91.148 Patient's other noncompliance with medication regimen for other reason; Z79.3 Long term (current) use of hormonal contraceptives; Z79.899 Other long term (current) drug therapy; Z86.718 Personal history of other venous thrombosis and embolism; Z88.5 Allergy status to narcotic agent
CPT/HCPCS: 99283; Z7502

== ENCOUNTER 2024-11-21 20:33 | Emergency (ER) | payer MEDICARE, OTHER ==
[~2024-11-21] VITALS: Ht 162.6 cm; Wt 170.0 kg
[~2024-11-21 20:33] MED LIST changes: -CELE-125 PO; +LEVE250T81 PO; -NORE5TAB7 PO; -OXYC-618 PO; -PREG75CA76 PO
[2024-11-21 20:44] VITALS: TEMP 98
[2024-11-21 21:53] LABS: BASOPHILS % (AUTO) 0.7 % (0.0-2.0); EOSINOPHILS % (AUTO) 3.9 % (1.0-6.0); HEMATOCRIT 35.9 % (36-46); HEMOGLOBIN 11.8 g/dL (12.0-16.0); LYMPHOCYTES # (AUTO) 2.3 K/uL (1.0-4.8); MEAN CORPUSCULAR HEMOGLOBIN 28.9 pg (26.0-34.0); MEAN CORPUSCULAR VOLUME 88 fL (80-100); MONOCYTES # (AUTO) 0.6 K/uL (0.1-1.0); MONOCYTES % (AUTO) 7.9 % (2.0-9.0); NEUTROPHILS # (AUTO) 4.3 K/uL (1.8-7.7); NEUTROPHILS % (AUTO) 57.5 % (40.0-70.0); PLATELET COUNT (AUTO) 335 K/uL (150-450); RED CELL DISTRIBUTION WIDTH 16.3 % (11.5-14.5); WHITE BLOOD COUNT (AUTO) 7.5 K/uL (4.5-11.0)
[2024-11-21 22:05] LABS: ANION GAP 5 mmol/L (8-16); CALCIUM, TOTAL 8.6 mg/dL (8.8-10.5); CARBON DIOXIDE 30 mmol/L (22-29); CHLORIDE 101 mmol/L (98-107); CREATININE 0.69 mg/dL (0.60-1.30); GLOMERULAR FILTR. RATE CALC > 60 mL/min (>60); GLUCOSE,RANDOM 140 mg/dL (70-110); POTASSIUM 4.1 mmol/L (3.5-5.1); SODIUM SERUM 136 mmol/L (136-145); UREA NITROGEN, BLOOD 8 mg/dL (7-18)
[2024-11-21 22:13] LABS: ALBUMIN 2.7 g/dL (3.4-5.0); BILIRUBIN,DIRECT 0.1 mg/dL (0.00-0.20); BILIRUBIN,TOTAL 0.2 mg/dL (0.1-1.0); TOTAL PROTEIN, SERUM 7.1 g/dL (6.4-8.2)
[2024-11-21 23:32] LABS: APPEARANCE,URINE CLEAR (CLEAR); BILIRUBIN,URINE NEGATIVE (NEGATIVE); COLOR,URINE LIGHT YELLOW (YELLOW); GLUCOSE, URINE (UA) NEGATIVE (NEGATIVE); KETONES,URINE NEGATIVE (NEGATIVE); LEUKOCYTE ESTERASE ,URINE NEGATIVE (NEGATIVE); NITRATE,URINE NEGATIVE (NEGATIVE); OCCULT BLOOD,URINE NEGATIVE (NEGATIVE); PH,URINE 7.5 (5.0-8.0); PROTEIN,URINE NEGATIVE (NEGATIVE); SPECIFIC GRAVITIY, URINE 1.012 (1.003-1.030); UROBILINOGEN,URINE <=1.0 mg/dL (<=1.0)
[2024-11-21] MEDS: ONDANSETRON 4 MG RAPDIS TABLET PO ONE (23:46)
[2024-11-21] MEDS: MORPHINE SULFATE 4 MG/ML SYRINGE IM ONE (23:47)
[2024-11-22 00:30] VITALS: BP 140/82; PULSE 95; RESP 20; O2SAT 99
[2024-11-22] MEDS: MAG HYDROX/ALUMINUM HYD/SIMETH ES 30 ML SUSPENSION UDCUP PO ONE (00:52)
[2024-11-22] MEDS: PHENOBARB/HYOSCY/ATROPINE/SCOP 5 ML UDCUP ELIXIR PO ONE (00:52)
[2024-12-06] MEDS ORDERED: PROP10TA72 PO (10:59)
== END 2024-11-22 00:30 | disposition home or self-care (01) ==
LOC: EMS 21:52
DX: R10.9 Unspecified abdominal pain (principal); R19.7 Diarrhea, unspecified; J44.89 Other specified chronic obstructive pulmonary disease; F41.9 Anxiety disorder, unspecified; F20.9 Schizophrenia, unspecified; Z88.5 Allergy status to narcotic agent; Z86.718 Personal history of other venous thrombosis and embolism; Z79.899 Other long term (current) drug therapy
CPT/HCPCS: 99285; 74176; 71045; 80048; 80076; 81003; 85025; 36415; 96372; J2270

== ENCOUNTER 2024-12-07 11:57 | Emergency (ER) | payer MEDICARE, OTHER ==
[~2024-12-07] VITALS: Ht 170.2 cm; Wt 172.4 kg
[~2024-12-07 11:57] MED LIST changes: +PROP10TA72 PO
[2024-12-07 12:10] VITALS: TEMP 97.8
[2024-12-07 14:26] VITALS: BP 139/101; PULSE 90; RESP 16; O2SAT 100
== END 2024-12-07 14:27 | disposition home or self-care (01) ==
LOC: EMS 11:58
DX: G40.409 Other generalized epilepsy and epileptic syndromes, not intractable, without status epilepticus (principal); J44.89 Other specified chronic obstructive pulmonary disease; F41.9 Anxiety disorder, unspecified; F20.9 Schizophrenia, unspecified; Z88.5 Allergy status to narcotic agent; Z86.718 Personal history of other venous thrombosis and embolism; Z79.899 Other long term (current) drug therapy
CPT/HCPCS: 99283; Z7502

== ENCOUNTER 2024-12-13 10:46 | Emergency (ER) | payer MEDICARE, OTHER ==
[~2024-12-13] VITALS: Ht 160 cm; Wt 175.2 kg
[~2024-12-13 10:46] MED LIST changes: -CHLO25TA70 PO; +CHLO25TA82 PO; +DULO20CA70 PO; -DULO20CA71 PO
[2024-12-13 10:59] VITALS: TEMP 98.5
[2024-12-13 11:15] LABS: BASOPHILS % (AUTO) 0.4 % (0.0-2.0); EOSINOPHILS % (AUTO) 3.6 % (1.0-6.0); HEMOGLOBIN 12.2 g/dL (12.0-16.0); LYMPHOCYTES # (AUTO) 1.5 K/uL (1.0-4.8); LYMPHOCYTES % (AUTO) 28.7 % (22.0-44.0); MEAN CORPUSCULAR HEMOGLOBIN 28.8 pg (26.0-34.0); MEAN CORPUSCULAR VOLUME 87 fL (80-100); MONOCYTES # (AUTO) 0.4 K/uL (0.1-1.0); MONOCYTES % (AUTO) 7.3 % (2.0-9.0); NEUTROPHILS # (AUTO) 3.2 K/uL (1.8-7.7); PLATELET COUNT (AUTO) 326 K/uL (150-450); RED BLOOD CELL COUNT(AUTO) 4.23 MIL/uL (4.00-5.20); RED CELL DISTRIBUTION WIDTH 16.6 % (11.5-14.5); WHITE BLOOD COUNT (AUTO) 5.4 K/uL (4.5-11.0)
[2024-12-13] MEDS: LevETIRAcetam 1,500 MG in DEXTROSE 5%-WATER 100 ML IV ONE (11:18)
[2024-12-13 11:23] LABS: ANION GAP 3 mmol/L (8-16); CARBON DIOXIDE 32 mmol/L (22-29); CHLORIDE 102 mmol/L (98-107); CREATININE 0.86 mg/dL (0.60-1.30); GLOMERULAR FILTR. RATE CALC > 60 mL/min (>60); GLUCOSE,RANDOM 143 mg/dL (70-110); POTASSIUM 4.3 mmol/L (3.5-5.1); SODIUM SERUM 137 mmol/L (136-145); UREA NITROGEN, BLOOD 9 mg/dL (7-18)
[2024-12-13] MEDS: HYDROCODONE/ACETAMINOPHEN 10-325 MG TABLET PO ONE (11:39)
[2024-12-13 12:34] LABS: APPEARANCE,URINE CLEAR (CLEAR); BILIRUBIN,URINE NEGATIVE (NEGATIVE); COLOR,URINE LIGHT YELLOW (YELLOW); GLUCOSE, URINE (UA) NEGATIVE (NEGATIVE); KETONES,URINE NEGATIVE (NEGATIVE); LEUKOCYTE ESTERASE ,URINE NEGATIVE (NEGATIVE); NITRATE,URINE NEGATIVE (NEGATIVE); OCCULT BLOOD,URINE TRACE (NEGATIVE); PH,URINE 8.5 (5.0-8.0); PROTEIN,URINE NEGATIVE (NEGATIVE); SPECIFIC GRAVITIY, URINE 1.013 (1.003-1.030); UROBILINOGEN,URINE <=1.0 mg/dL (<=1.0)
[2024-12-13 12:36] VITALS: BP 121/75; PULSE 71; RESP 20; O2SAT 94
[2024-12-13 12:49] LABS: AMPHET/METH SCREEN,URINE NEGATIVE (NEGATIVE); BARBITURATE SCREEN, URINE NEGATIVE (NEGATIVE); BENZODIAZEPINES SCREEN,URINE POSITIVE (NEGATIVE); CANNABINOID SCREEN,URINE POSITIVE (NEGATIVE); COCAINE SCREEN,URINE NEGATIVE (NEGATIVE); METHADONE SCREEN, URINE NEGATIVE (NEGATIVE); OPIATE SCREEN,URINE NEGATIVE (NEGATIVE); PHENCYCLIDINE SCREEN,URINE NEGATIVE (NEGATIVE)
[2024-12-13 13:04] LABS: PH,URINE DRUG SCREEN 7.5 (5.0-8.0)
[2024-12-13 13:11] LABS: ALCOHOL, URINE DRUG SCREEN NEGATIVE (NEGATIVE)
[2024-12-13 13:13] LABS: BACTERIA,URINE None Seen /HPF (None Seen); RBC,URINE 0-2 /HPF (0-2); SQUAMOUS EPITHELIAL CELL,UR Few /LPF (None Seen); WBC,URINE None Seen /HPF (0-5)
[2024-12-13] MEDS: HYDROmorphone HCL 2 MG/ML SYRINGE IVP ONE (13:27)
== END 2024-12-13 14:08 | disposition home or self-care (01) ==
LOC: EMS 10:46
DX: G40.909 Epilepsy, unspecified, not intractable, without status epilepticus (principal); J44.89 Other specified chronic obstructive pulmonary disease; F20.9 Schizophrenia, unspecified; F41.9 Anxiety disorder, unspecified; F31.9 Bipolar disorder, unspecified; Z88.5 Allergy status to narcotic agent; Z86.718 Personal history of other venous thrombosis and embolism; Z79.899 Other long term (current) drug therapy
CPT/HCPCS: 99284; 96365; 96375; 80048; 83605; 84703; 85025; 36415; 80307; 81001; J0712; J1171; J7060